=== PATIENT | female | born 1945 | race Caucasian/White ===

== ENCOUNTER 2016-11-11 11:04 | Inpatient (IN) | payer MEDICARE, MEDICAID ==
[~2016-11-11] VITALS: Ht 165.1 cm; Wt 50.3 kg
[2016-11-11] VITALS (13 sets, daily range): BP systolic 87–113; BP diastolic 36–58; PULSE 89–102; RESP 13–23; O2SAT 96–98
[~2016-11-11 11:04] MED LIST: ALBU2.5V4 INHALATION; ALBU8.5H2 INHALATION; ALPR0.5T8 PO; ERGO500050 PO; FLUO20TA28 PO; IMI100 PO; LEVO88TA4 PO; LIDO700A33 TOP; METO25TA99 PO; MIRT15TA6 PO; NEPHVIT PO; OMEP20CA11 PO; OXYC10TA8 PO; PRD5T PO; PROM25SU46 RC; PROM25TA14 PO; SEVE800T7 PO
[2016-11-11] MEDS ORDERED: Piperacillin-Tazo 3.375 Gm Inj 3.375 GM in Dextrose 5% Minibag Plus 50 ML IV ONE (11:45)
[2016-11-11] MEDS ORDERED: levoFLOXacin Inj 750 MG in IV Premix 1 EACH IV ONE (11:45)
[2016-11-11] MEDS ORDERED: Vancomycin Dose per Pharmacist XX ONE (11:45)
--- NOTE | 2016-11-11 12:04 | ED.REPORT ---
HPI-General Illness Date of Service Nov 11, 2016 ED Provider: Glenda Loza MD Pt is a 71 y/o female w/ a hx of ESRD on dialysis, CHF, chronic respiratory failure on home O2, prior PE and DVT, hyperlipidemia, presenting to the ED c/o generalized weakness onset yesterday. The pt had a transvalvular aortic valve repair attempted in [place] recently that failed with some intraoperative codes. She has an ejection fraction of 15%. She is currently living at [facility] and the goal is continued aggressive treatment with full code status. She went to dialysis today and was deemed to look ill enough to not be dialyzed. At that time she had a palliative care consult and she is full code/aggressive treatment. She had been rehabilitating relatively well until yesterday when she developed subjective fever, chills, cough, and generalized weakness. She denies N/V/D, CP, abdominal pain, SOB. Palliative care physician Dr. Ruelas was consulted prior to interview and recommends workup for influenza vs hospital acquired pneumonia vs sepsis. Nursing Notes Stated Complaint: PAIN THROUGHOUT BODY Chief Complaint: General Complaint Nursing Notes Reviewed: Yes Allergies: Coded Allergies: morphine (Verified Allergy, Severe, depressed loc, TOLERATES HYDROCODONE, 07/06/16) hydromorphone (Unverified Allergy, Mild, 07/06/16) metoclopramide HCl (Verified Adverse Reaction, Severe, Nausea,Vomiting, ) Scheduled Ergocalciferol (Vitamin D2) (Drisdol) 50,000 Unit Capsule 50,000 UNIT PO Q7D tuesday only Fluoxetine (Fluoxetine) 20 Mg Tablet 20 MG PO evening Levothyroxine (Levothyroxine) 88 Mcg Tablet 88 MCG PO DAILY Lidocaine (Lidocaine) 700 Mg Adh..patch 1 PATCH TOP daily on hs, off AM Metoprolol Succinate ER (Metoprolol Succinate ER) 25 Mg Tab.er.24h 12.5 MG PO DAILY Mirtazapine (Mirtazapine) 15 Mg Tablet 7.5 MG PO HS Omeprazole (Omeprazole) 20 Mg Capsule.dr 20 MG PO BIDAC Prednisone (PredniSONE) 5 Mg Tab 5 MG PO DAILY Sevelamer Carbonate (Renvela) 800 Mg Tablet 800 MG PO TIDWM Vitamin B Complex/Vit C (Shakira-Murray Tablet) 1 Tab Tab 1 TAB PO DAILY Scheduled PRN Albuterol HFA (Proair HFA) 8.5 Gm Hfa.aer.ad 2 PUFFS INHALATION Q4H PRN PRN For Shortness of Breath Albuterol Neb Soln (Albuterol Neb Soln) 2.5 Mg/3 Ml Vial.neb 2.5 MG INHALATION TID PRN PRN For Shortness of Breath Alprazolam (Alprazolam) 0.5 Mg Tablet 0.5 MG PO BID PRN PRN For Anxiety Promethazine (Promethazine) 25 Mg Tablet 25 MG PO DAILY PRN PRN For Nausea Sumatriptan (Imitrex) 100 Mg Tablet 100 MG PO DAILY PRN PRN FOR MIGRAINE HEADACHE may repeat in 2 hours, max dose 200 mg in 24 hrs oxyCODONE (oxyCODONE) 10 Mg Tablet 10 MG PO TID PRN PRN For Pain Miscellaneous Medications Promethazine HCl (Phenergan) 25 Mg Supp.rect 25 MG RC General Time Seen by MD: 11:42 Chief Complaint Multip medical complaints Hx Obtained From: Patient Arrived By: Walk-in Sudden in Onset?: No Onset Occurred: Yesterday Symptom Duration: Since onset Quality: Aching (diffuse) Severity: Current: Mild Severity: Maximum: Mild Past Medical History Past Medical History Notes: On prednisone 5 mg qd Past Medical History Hx STEMI ESRD on dialysis, prolonged QT Chronic hypoxemic respiratory failure on home oxygen Congestive heart failure Prolonged QT syndrome status post AICD Anemia due to renal failure History of pneumonia History of orthostatic hypotension History of pulmonary embolism and DVT diagnosed in 12/01/2012 no longer taking anticoagulation for unknown reasons. Chronic steroid dependency History of hepatitis B Hypothyroidism Depression Hyperlipidemia Hypertension History of miliary tuberculosis in 2010 treated Past Surgical History Pacemaker, Kidney transplant 1999 Cholecystectomy Appendectomy Family History Noncontributory Smoking History Never Smoker Social History Alcohol Use: Denies alcohol use Drug Use: Denies drug use Other Social History: Good social support, , Local resident Ambulatory Status Independent Review of Systems Full Review of Systems Constitutional: Reports: Chills, Fever, Weakness - generalized Respiratory: Reports: Non-productive cough, Denies: Shortness of breath Cardiovascular: Denies: Chest pain GI: Denies: Abdominal pain, Diarrhea, Nausea, Vomiting Complete sys rev & neg: except as marked. Physical Exam Vital Signs Vital Signs Date Time Temp Pulse Resp B/P Pulse Ox O2 Delivery O2 Flow Rate FiO2 11/11/16 15:19 92/38 11/11/16 14:43 36.9 90 13 91/43 96 Nasal Cannula 2 11/11/16 13:14 90 18 103/43 96 Nasal Cannula 2 11/11/16 12:21 98 17 104/52 96 Room Air 11/11/16 11:28 38.4 102 23 106/47 98 Nasal Cannula 2 Initial VS: Reviewed, Vital signs abnormal Head / Eyes: Atraumatic, Normocephalic, PERRL ENT: Mucous membranes moist, Conjunctiva normal, No scleral icterus Neck: Supple, Full range of motion Abdomen / GI: Soft, Non-tender Skin: Warm, Dry, No cyanosis Psychiatric: Mood/affect normal, Behavior normal, Normal thought content General/Constitutional: Awake, Alert, No acute distress, Cooperative Distress / Hydration: Positive: Dehydration mild Respiratory / Chest: Atraumatic, No respiratory distress, No retractions Crackles and inspiratory squeaking on the right side. Cardiovascular: Heart rate NL, Regular rhythm, Cap refill not delayed, Peripheral circulation NL Heart Sounds / Murmur: Positive: Systolic murmur present.. (II/) Lower Ext Edema: Positive: Bilateral 2+ (chronic) Neurologic: Oriented X3, Speech NL, No motor deficits, No sensory deficits Appears generally contracted Interpretation & Diagnostics Lab Results Interpretation Result Diagram: 11/11/16 1208 11/11/16 1208 Test 11/11/16 12:08 White Blood Count 13.3th/mm3 (3.8-10.1) Red Blood Count 2.94mil/mm3 (3.90-5.20) Hemoglobin 9.6g/dL (12.0-15.6) Hematocrit 31.3% (35.0-46.0) Mean Corpuscular Volume 106.5fL (81-100) Mean Corpuscular Hemoglobin 32.7pg (27.0-35.0) Mean Corpuscular Hemoglobin Concent 30.7% (32.0-37.0) Red Cell Distribution Width 17.9% (12.3-15.4) Platelet Count 386bil/L (150-400) Neutrophils (%) (Auto) 93.0% (40-74) Lymphocytes (%) (Auto) 2.4% (14-46) Monocytes (%) (Auto) 4.0% (4-12) Eosinophils (%) (Auto) 0.2% (0-5) Basophils (%) (Auto) 0.2% (0-3) Sodium Level 136mEq/L (134-144) Potassium Level 4.0mEq/L (3.5-5.2) Chloride Level 91mEq/L (97-108) Carbon Dioxide Level 29mmol/L (18-29) Blood Urea Nitrogen 40mg/dL (8-27) Creatinine 5.66mg/dL (0.57-1.00) Estimat Glomerular Filtration Rate 11mL/min (>59) Glucose Level 106mg/dL (60-99) Calcium Level 9.1mg/dL (8.5-10.1) Total Bilirubin 0.9mg/dL (0.0-1.2) Aspartate Amino Transf (AST/SGOT) 30U/L (0-50) Alanine Aminotransferase (ALT/SGPT) 15U/L (0-32) Alkaline Phosphatase 258U/L (25-165) Troponin T 0.393ug/L (0.0-0.011) Total Protein 6.3g/dL (6.4-8.4) Albumin 3.5g/dL (3.4-5.0) ECG Interpretation ECG Interpretation: Sinus tachycardia rate 100 LVH with secondary repol pattern Time: 12:10 Interpreted by: ED physician Normal ECG Interpretation: No acute ischemic changes X-Ray Chest Interpretation Chest Xray Interpretation: IMPRESSION: 1. Mild pulmonary edema decreased from prior examination. 2. Small pleural effusions persist and there is airspace opacity involving the lung bases consistent with compressive atelectasis, patchy edema or pneumonia. Correlate clinically. Dictated by: Fabrizio Maki RRA Interpreted: Yvonne Adam MD on 11/11/2016 at 12:50 Transcribed by: MILKA on 11/11/2016 at 12:51 View: Portable, 1 view Interpretation / Wet Read by: Interpret - Radiologist Re-Eval/Medical Decision Med Decision/Clinical Course 71-year-old female with renal failure, and a prodrome of cold and chills suggesting bacterial infection. She has had about a one-week history of cough as well, though nonproductive. Her x-ray has an atelectatic area versus infiltrate in the right base, and findings on chest exam in that area, all suggesting pneumonia. She has received antibiotics for healthcare associated pneumonia, which should cover any likely pathogens. She has received a small bolus of fluid given her tachycardia and mild hypotension. She did not receive her dialysis today as planned, but has no indication for stat dialysis by pH or by potassium. She is admitted to the medicine service. Discussed with nephrology. Source of Hx: Old records Time of Eval: 14:17 Re-Evaluation/Progress Note: Pt rechecked. Pt informed of need for admission due to likely pneumonia and risk for adverse events if discharged. Pt understands and agrees with plan for admission. All questions addressed. Consultation #1: Referral / Consult Name: Daphne Ruelas MD Call Returned at: 11:50 Nitroglycerin Neutralizer: Will see patient, Agrees with eval, Agrees with plan Note: Discussed case with palliative care prior to interview. Informs that patient is aggressive treatment/full code. Consultation #2: Referral / Consult Name: Ryan Martinez MD Consulted With: Hospitalist Call Returned at: 15:30 Nitroglycerin Neutralizer: Will see patient, Agrees with eval, Agrees with plan, Accepts admit Note: Case discussed. Counseled Regarding: Diagnosis, Lab results, Need for admission Discharge & Departure Primary Impression: Pneumonia Pneumonia type: due to unspecified organism Laterality: right Lung location : lower lobe of lung Qualified Code: J18.9 - Pneumonia, unspecified organism Additional Impression: Renal failure, chronic Chronic kidney disease stage: stage 5 Qualified Code: N18.5 - Chronic kidney disease, stage 5 Disposition: ADMITTED TO HOSPITAL Discharge Condition All VS Reviewed: Yes Condition: Stable Referrals: Santino Pratt MD (PCP) Jannie Attestation Portions of this note were transcribed by Carson Keane. I, Dr. Loza personally performed the history, physical exam and medical decision-making; I reviewed and confirmed the accuracy of the information in the transcribed note. Signed by Jannie Roberto, 11/11/16 - 1300 copies to: Santino Pratt MD, Shawna L MD Nov 11, 2016 12:04 CARSON KEANE Nov 11, 2016 12:09 Moises Hayes MD Nov 11, 2016 19:25
[2016-11-11] MEDS ORDERED: Vancomycin 1 Gm/200 mL D5W Premix IV ONE (12:05)
[2016-11-11 12:22] LABS: BASOPHILS % (AUTO) 0.2 % (0-3); EOSINOPHILS % (AUTO) 0.2 % (0-5); Mean Corpuscular Hemoglobin 32.7 pg (27.0-35.0); Mean Corpuscular Volume 106.5 fL (81-100); Platelet Count 386 bil/L (150-400)
--- NOTE | 2016-11-11 12:52 | DRSVH ---
PROCEDURE: X-RAY CHEST ONE VIEW, PORTABLE ([id number]) INDICATIONS: cough TECHNIQUE: One view of the chest was acquired. COMPARISON: Outside Film, CR, XR CHEST 1VW, 10/27/2016, 0:08. [facility], CR, XR CHEST 1 VW (PORTABLE), 06/10/2016, 8:58. FINDINGS: Surgical changes and devices: Stable position of left chest AICD. Lungs and pleura: Interstitium is prominent and small basilar pleural effusions redemonstrated. Airs pace opacity involves the lung bases No pneumothorax. Mediastinum: Mediastinal contours appear normal. Heart size is enlarged. Bones and chest wall: No suspicious bony lesions. Overlying soft tissues appear unremarkable. IMPRESSION: 1. Mild pulmonary edema decreased from prior examination. 2. Small pleural effusions persist and there is airspace opacity involving the lung bases consistent with compressive atelectasis, patchy edema or pneumonia. Correlate clinically. Dictated by: Fabrizio Maki [facility] Interpreted: Yvonne Adam MD on 11/11/2016 at 12:50 Transcribed by: MILKA on 11/11/2016 at 12:51 Approved by: Yvonne Adam MD, PhD on 11/11/2016 at 17:25
[2016-11-11 13:01] LABS: TROPONIN T 0.393 ug/L (0.0-0.011)
[2016-11-11] MEDS ORDERED: 0.9% Sodium Chloride 250 ML ONE (13:14)
[2016-11-11] MEDS ORDERED: 0.9% Sodium Chloride 500 ML IV ONE (15:35)
[2016-11-11] MEDS ORDERED: 0.9% Sodium Chloride 1,000 ML IV SCH (15:43)
[2016-11-11] MEDS ORDERED: Ondansetron 2 mg/mL 2 mL Inj IVPUSH PRN ×2 (15:45→16:05)
[2016-11-11] MEDS ORDERED: Acetaminophen IV 1,000 MG in IV Premix 1 EACH IV PRN (16:05)
[2016-11-11] MEDS: Vancomycin Dose per Pharmacist XX SCH (16:27)
--- NOTE | 2016-11-11 16:50 | PCM.CONPHA ---
Subjective Date of Service: Nov 11, 2016 Sepsis Reason for Pharmacy Consult: Vancomycin Dosing Assessment/Plan Assessment/Plan Patient is a 71 y.o. female receiving vancomycin for sepsis. Concurrent abx include: zosyn and levofloxacin. WBC count is 13.3 and the patient is febrile. Patient is 50 kg, 66 inches tall on HD Based on patient parameters vancomycin will be loaded with 1000mg once, then redosed based on random levels <20 drawn each morning @0500. Pharmacy will follow daily and adjust as appropriate. Thank you for the consult in the care of this patient. RWP Emanuel Aguilar Nov 11, 2016 16:49
[2016-11-11] MEDS ORDERED: 0.9% Sodium Chloride 250 ML IV PRN (17:10)
[2016-11-11 17:51] LABS: Phosphorus 2.5 mg/dL (2.5-4.9)
--- NOTE | 2016-11-11 18:22 | NUR ---
Admit [facility] Pt arrived at approx 1630 with all belongings intact, VS stable except low BP of which MD is aware and orders are in place. in room to assist with admit. Pt A&O, NS @ TKO, on 2L O2. Med rec pending. Care continues.
--- NOTE | 2016-11-11 18:24 | NUR ---
Skin Pt has possible pressure ulcer or serious skin concern on her medial coccyx area, mepilex removed and area examined, new mepilex applied. Area was oozing pus and non blanchable. ordered WC consult for tomorrow. Continuing to monitor.
--- NOTE | 2016-11-11 19:19 | CONS ---
[address] [address] CONSULTATION REPORT PATIENT: SALLIE ANSARI : 1945 MR#: [id number] ADMIT: 11/11/2016 JOB ID: [id number] DATE OF SERVICE: 11/11/2016 REASON FOR CONSULTATION: Management of end-stage renal disease. REQUESTING PHYSICIAN: Dr. Loza. REASON FOR CONSULTATION: Management of end-stage renal disease. CHIEF COMPLAINT: Weakness. PRESENT ILLNESS: This is a 71-year-old lady with significant past medical history of end-stage renal disease on hemodialysis every Tuesday, , Tuesday, CHF, severe deconditioning, chronic respiratory failure requiring home oxygen, pulmonary embolism, hypertension with hypertensive nephrosclerosis, prolonged QT syndrome, status post kidney transplant in 1999 who was brought to the emergency department given history of feeling sick. The patient recently underwent transvalvular aortic valve repair in one of the hospitals in [place]. Unfortunately, the procedure did not go well. The patient coded during the procedure. Her mentioned that they basically could not fix the valvular problem. The patient then sent to [facility]. The patient has been at [facility] for at least two weeks. According to her , she started having productive cough for about one week also. She has no fever, no chills, no nausea, vomiting, no diarrhea. Apparently at dialysis center today, she became malaise and looked very ill. She was then brought to the emergency room for further investigations. Her initial blood pressure was 106/47 with a temperature of 38.4. Blood pressure then dropped to 87/36. She received IV fluid bolus and a septic workup was done including the blood culture, influenza screening so far negative, chest x-ray showed airspace opacity on the lung bases consistent with atelectasis, edema or pneumonia. The patient was started on IV broad-spectrum antibiotics. Her initial white blood cell count was 13.3. During my visit at the moment, she stated that she had felt a little bit better after she received IV fluids and antibiotics. Her also agreed to that. Her last dialysis was two days ago. Her current potassium level is 4.0. PAST MEDICAL HISTORY: 1. End-stage renal disease on hemodialysis every Tuesday, , Tuesday. 2. Status post kidney transplant in 1999 with graft failure. 3. COPD requiring home oxygen. 4. Prolonged QT status post AICD. 5. History of PE and DVT. 6. History of hepatitis B infection. 7. Hypothyroid. 8. Dyslipidemia. 9. Hypertension with hypertensive nephrosclerosis. 10. History of tuberculosis in 2010. 11. Anemia of chronic disease. 12. Renal osteodystrophy. PAST SURGICAL HISTORY: 1. Status post kidney transplant in 1999. 2. Status post AV fistula creation. 3. Status post AICD placement. 4. Status post cholecystectomy. 5. Status post appendectomy. 6. Status post attempted transvalvular aortic valve repair. FAMILY HISTORY: No kidney disease in the family. SOCIAL HISTORY: Patient is a [place]. She denies current use of alcohol, tobacco, or illicit drugs. REVIEW OF SYSTEMS: Fourteen point review of system was performed. MEDICATIONS: Reviewed. ALLERGIES: 1. HYDROMORPHONE. 2. METOCLOPRAMIDE. 3. MORPHINE. PHYSICAL EXAMINATION: Vitals: Temperature 36.8, pulse 90, respiratory 14, blood pressure 105/44, O2 sat 97% on 2 L nasal cannula. General appearance: Chronically ill-looking, in no acute distress. HEENT: Atraumatic. Mild pallor. No jaundice. No JVD. Dry mucous membranes. Heart: Regular rhythm. Normal S1, S2. Soft systolic murmur noted. Lungs: Poor air entry bilaterally. Scattered rhonchi. No wheezing at the moment. Abdomen: Soft. Active bowel sounds. Extremities: No edema, cyanosis. LABORATORY: Sodium 136, potassium 4.0, chloride 91, bicarb 29, BUN 40, creatinine 5.66, hemoglobin 9.6. WBC 13.3. ASSESSMENT: 1. End-stage renal disease on hemodialysis every Tuesday, , Tuesday. 2. Currently, the patient is unstable. She has been hypotensive. Her current potassium level is within normal limits. We will hold dialysis today and likely she will receive her treatment tomorrow for 3 hours. 3. Recent history of productive cough and malaise suspected healthcare-associated pneumonia. 4. Severe aortic stenosis status post attempted transvalvular aortic valve repair. 5. Chronic systolic heart failure with ejection fraction 15%. 6. Prolonged QT syndrome status post automatic implantable cardioverter-defibrillator. 7. Chronic obstructive pulmonary disease requiring home oxygen. PLAN: We will hold dialysis today and we will arrange for dialysis tomorrow. The requests for her to have regular diet. I have agreed for that since this patient is very malnourished and she cannot eat very much. Nonetheless, we will monitor her volume status and potassium level. Continue current IV broad-spectrum antibiotics. We will discontinue current IV fluids. We will monitor her blood pressure and will give normal saline bolus as needed if she becomes hypotensive. Thank you for the consultation. We will monitor along with you.
--- NOTE | 2016-11-11 19:52 | PCM.HPMED ---
Subjective Date of Service Nov 11, 2016 Primary Provider: Admitting Physician: Ryan Martinez MD Primary Care Physician: Santino Pratt MD Attending Physician: Ryan Martinez MD Chief Complaint: Sepsis History of Present Illness: Patient is 71yof from [facility] with HMx significant for CHF EF 15-20%, severe aortic stenosis, ESRD on HD, chronic respiratory failure on 2L home O2, and chronic steroids dependent presents with 4 days of weakness and cough. Per patient, reports dry cough for several weeks now. She denies any fevers chills nausea vomiting or diarrhea. Today however, patient woke up with generalize weakness and body aches. Nevertheless, patient went to dialysis. At dialysis, it was reported that she had a temperature of 38.4C and blood pressure dropped of 87/36. Patient was admitted to the ED for further evaluation. Patient recently (09/2016) underwent TAPVR procedure at for her nonrheumatic critical aortic stenosis. This was unsuccessful however. She was sent to [facility] [place] for further rehabilitation status post surgery. Review of Systems: A comprehensive review of systems was conducted with the patient and found to be negative except as above in the History of Present Illness. Allergies Coded Allergies: morphine (Verified Allergy, Severe, depressed loc, TOLERATES HYDROCODONE, 07/06/16) hydromorphone (Unverified Allergy, Mild, 07/06/16) metoclopramide HCl (Verified Adverse Reaction, Severe, Nausea,Vomiting, ) Home Medications Active home medication NexGen We will need med rec nurse Lisinopril 5 mg daily Oxycodone 10 mg every 4-6 hours as needed Similar manner carbonate 800 mg daily Warfarin 2 mg daily Prednisone 5 mg daily Omeprazole delayed release least twice a day Fluoxetine 20 mg in the a.m. Albuterol sulfate 2.5/3 mL nebulizer 3 times a day Levothyroxine 88 MCG qd Lidocaine patch 5% qd Alprazolam 0.5 mg twice a day Albuterol sulfate HFA 2 puffs every 4-6 hours as needed Phenergan 25 mg suppository as needed Promethazine 25 mg every 6 hours Landers Mirtazapine 15 mg half tablet nightly as needed Sumatriptan 100 mg orally after onset PMH Hypothyroidism Hypertension Hyperlipidemia History of long QT and chest syndrome status post AICD History of diverticulosis History of depression End-stage renal disease on HD, Tuesday and Tuesday Migraine headaches History of bleeding gastric ulcer Hyperparathyroidism Aortic stenosis with valvular area 0.8 cm status post failed TARV Hx Pulmonary embolism and DVT 12/01/2012 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 Hx of hepatitis B Surgical History Kidney transplant 1999 and Tonsillectomy Cardiac pacemaker Cholecystectomy Appendectomy Family History Mother with diabetes old age Father with congestive heart disease of old age Social History Hx Alcohol Use: No Hx Substance Use: No Hx Tobacco Use: No Smoking Status: Never Smoker Exam Vital Signs Vital Sign - Last Date Time Temp Pulse Resp B/P Pulse Ox O2 Delivery O2 Flow Rate FiO2 11/11/16 18:07 101/58 11/11/16 16:56 36.8 90 14 97 Nasal Cannula 2.00 Exam Gen: No acute distress, finished plate dinner, ro faces , HEENT: Anicteric, PERRLA, mild mucosal membrane dryness. Neck: supple, no JVD Cardio: Regular rate and rhythm, holosystolic murmur, no rub or gallop. Pulm: b/l air sound, no crackles, wheezes, or rhonchi. Normal respiratory effort with no use of accessory muscles. Abd: positive bowel tone. Soft, nontender, nondistended. Extremities: No clubbing or cyanosis, bilateral lower leg pitting edema up to the knees. Skin: Normal temperature, turgor, and texture; no rash, ulcers, or subcutaneous nodules appreciated. Report of sacral ulcer Neuro: Cranial nerves grossly intact. Normal muscle strength, tone, and bulk. Reflexes, coordination, and sensory function within normal limits. No known gait impairment. Psyc: Normal mood and affect. Alert and oriented to person, place, and time. Lab and Diagnostics Result Diagram: 11/11/16 1208 11/11/16 1208 Assessment & Plan [facility] 71[facility]x significant for CHF EF 15-20%, severe aortic stenosis, ESRD on HD, chronic respiratory failure on 2L home O2, and chronic steroids dependent presents with weakness and cough, admitted with severe sepsis secondary to HCAP pneumonia. Severe sepsis, present on admission, resolved -- Patient with SIRS positive on admission with temperature 38.4, HR 12, RR 23. and WBC 13.3, left shift, hypotensive -- Chest x-ray showed bilateral pleural effusion possibly pneumonia. -- She receive a total of 1.5 L of fluid with good effect. Blood pressure stable, lactic acid within normal limits -- Patient also received Zosyn, levofloxacin, vancomycin within the three-hour sepsis bundle. Hospital-acquired pneumonia, present on admission, active -- Continue antibiotics as above, de-escalate abx use once MRSA screening and culture sensitivity returns. -- Blood, sputum, urine culture, MRSA screening, viral respiratory panel, and pro-calcitonin ordered -- Careful to interpret pro-calcitonin level as patient is immune suppressed. -- Consider infectious disease consultation should patient's symptoms unimproved in the morning Chronic steroid-dependent, present on admission, ongoing -- Patient reports taking prednisone 5 mg daily -- Unknown the reason to why she is on chronic prednisone. But obviously we cannot discontinue. -- resume prednisone 5 mg qd Chronic heart failure with reduced ejection fraction, present on admission, ongoing -- Estimated EF 15-20%. -- This is secondary to critical aortic stenosis. -- Conservative on fluids. Bolus if BP is less than 90/50. -- Early to start arterial line and pressor support should patient blood pressure decompensate Chronic kidney disease on HD, present admission, ongoing -- Has HD Tuesday and Tuesday -- Continue to evaluate electrolyte abnormality. -- Patient will be dialyzed per nephrology. Team appreciate input. Chronic respiratory failure, present on admission, ongoing -- Chronic, continue nasal cannula up to 6 L per day Chronic respiratory failure, present on admission, active -- Place on home O2 setting of 2 L/m -- DuoNeb and albuterol when necessary Troponin elevation with unknown significant, present on admission, active -- EKG looks benign -- Trending troponin -- This is likely false positive in the setting of end-stage renal disease History of pulmonary embolism with DVT, present on admission, stable -- Restarted warfarin dose per pharmacy Depression/anxiety -- Fluoxetine 20 mg by mouth evening, as well as alprazolam 0.5 mg every 6 hours , and mirtazapine 30 mg hs History of PE/DVT present admission, ongoing, ongoing -- Warfarin dosing per pharmacy Essential hypertension, present admission, stable -- Holding all antihypertensive medication in the setting of severe sepsis DVT prophylaxis: warfarin Antipyretic: Acetaminophen PRN Antinausea: Ondansetron PRN Bowel regiment PRN Patient is admitted under inpatient status with expected length of stay GREATER than 2 midnights due to severity of presenting symptoms, risk of adverse event, and complexity of treatment plan. Pain Evaluation: Adequate Pain Control Resuscitation Status: CPR: Attempt Resuscitation Time spent 40 minutes critical care time spent managing pts severe sepsis. Attending Statement The patient was seen and examined together with Dr. García Nunez on 11/11/2016 and I have added additional information to the note above. García Nunez DO Nov 11, 2016 18:53 Ryan Martinez MD Nov 12, 2016 09:08
[2016-11-11] MEDS ORDERED: 0.9% Sodium Chloride 250 ML IV ONE (20:30)
[2016-11-11] MEDS ORDERED: METO25TA99 PO (20:46)
[2016-11-11] MEDS ORDERED: FLUO20CA25 PO (21:03)
[2016-11-11] MEDS ORDERED: IPRA3AMP IH (21:03)
[2016-11-11] MEDS ORDERED: WARF1TAB6 PO (21:03)
[2016-11-11] MEDS ORDERED: ONDA-53 PO (21:03)
[2016-11-11] MEDS ORDERED: MULT-1018 PO (21:03)
[2016-11-11] MEDS ORDERED: WARF3TAB7 PO (21:03)
[2016-11-11] MEDS ORDERED: TRAZ-115 PO (21:03)
[2016-11-11] MEDS ORDERED: ACET325C PO (21:03)
[2016-11-11] MEDS ORDERED: LISI-571 PO (21:03)
[2016-11-11] MEDS ORDERED: FOLI1CAP8 PO (21:03)
--- NOTE | 2016-11-11 21:04 | NUR ---
med rec med rec completed. list from [facility] "rx resident profile." faxed request for medication transferr list. (called [facility] and requested) unable to date when the medications were administered from the profile list.
[2016-11-11] MEDS ORDERED: Albuterol-Ipratropium 3 mL Inhalation Solution NEB PRN (21:20)
[2016-11-11 22:47] LABS: INR 1.24 ratio
[2016-11-11] MEDS: Lidocaine Topical 5% Patch TOPICAL SCH (23:34)
[2016-11-11] MEDS: Heparin 5,000 Unit/mL Inj SUBQ SCH (23:34)
[2016-11-12] VITALS (13 sets, daily range): BP systolic 94–119; BP diastolic 53–72; PULSE 87–94; RESP 18–20; O2SAT 93–100
[2016-11-12] MEDS: Piperacillin-Tazo 3.375 Gm Inj 3.375 GM in Dextrose 5% Minibag Plus 50 ML IV SCH ×3 (00:46→12:30)
[2016-11-12] MEDS ORDERED: Vancomycin Serum Trough XX ONE (05:00)
--- NOTE | 2016-11-12 05:19 | NUR ---
BP BP at midnight was 98/51 (MAP67). 250mL NS bolus given x1; pt's BP sustaining in 100s/60s (MAP>70). Rest of VSS, afebrile.
[2016-11-12 07:07] LABS: INR 1.35 ratio
[2016-11-12] MEDS: predniSONE 5 mg Tablet PO SCH (08:03)
[2016-11-12] MEDS: Heparin 5,000 Unit/mL Inj SUBQ SCH ×2 (08:03→19:51)
[2016-11-12] MEDS: Vancomycin Dose per Pharmacist XX SCH (08:04)
[2016-11-12 08:46] LABS: BASOPHILS % (AUTO) 0.3 % (0-3); EOSINOPHILS % (AUTO) 0.9 % (0-5); MONOCYTES % (AUTO) 7.5 % (4-12); Mean Corpuscular Hemoglobin 33.8 pg (27.0-35.0); NEUTROPHILS % (AUTO) 84.6 % (40-74); Platelet Count 393 bil/L (150-400)
[2016-11-12] MEDS ORDERED: Vancomycin Inj 500 MG in Dextrose 5% 100 ML IV ONE (10:00)
[2016-11-12] MEDS: Senna-Docusate 8.6-50 mg Tablet PO SCH (10:22)
[2016-11-12] MEDS: Albuterol-Ipratropium 3 mL Inhalation Solution NEB SCH ×2 (10:53→20:43)
--- NOTE | 2016-11-12 11:42 | PCM.PNMED ---
Subjective Date of Service Nov 12, 2016 Subjective Res viral panel is positive for influenza A H3, Coronovirus. (+) productive cough and wheezes. pending HD today. Exam Vital Signs Vital Sign - Last Date Time Temp Pulse Resp B/P Pulse Ox O2 Delivery O2 Flow Rate FiO2 11/12/16 10:57 89 20 98 Nasal Cannula 2.00 11/12/16 08:51 36.6 111/65 Intake and Output 11/11/16 11/11/16 11/12/16 Cumulative From/Thru 15:00 23:00 07:00 11/11/16 11:28 - 11/12/16 06:52 Intake Total 100 ml 737 ml 405 ml 1242 ml Output Total 0 ml 0 ml Balance 100 ml 737 ml 405 ml 1242 ml Intake Oral 237 ml 100 ml 337 ml IV Total 100 ml 500 ml 305 ml 905 ml Output Urine Total 0 ml 0 ml Exam PHYSICAL EXAMINATION: General appearance: Chronically ill-looking, in no acute distress. HEENT: Atraumatic. Mild pallor. No jaundice. No JVD. Dry mucous membranes. Heart: Regular rhythm. Normal S1, S2. Soft systolic murmur noted. Lungs: Poor air entry bilaterally. Scattered rhonchi. (+) wheezes. Abdomen: Soft. Active bowel sounds. Extremities: right AVF with good thrill and bruits. No edema, cyanosis. Lab and Diagnostics Result Diagram: 11/12/1663411/12/1635 Assessment & Plan 1. End-stage renal disease on hemodialysis every Tuesday, , Tuesday. 2. Suspected hospital-associated pneumonia. 3. Influenza A/Coronovirus infection. 4. Severe aortic stenosis status post attempted transvalvular aortic valve repair. 5. Chronic systolic heart failure with ejection fraction 15%. 6. Prolonged QT syndrome status post automatic implantable cardioverter- defibrillator. 7. Chronic obstructive pulmonary disease requiring home oxygen. 8. HTN with hypertensive nephrosclerosis. PLAN: Pt missed HD yesterday, will resume dialysis today. We will continue her routine HD schedule starting tomorrow. Resuscitation Status: CPR: Attempt Resuscitation Juan Rodriguez MD Nov 12, 2016 11:42
--- NOTE | 2016-11-12 11:45 | NUR ---
Evaluation completed. Please go to "Notes" then click on "Assessments and Notes" (bottom left corner of screen). Then select appropriate discipline tab on top of screen.
[2016-11-12] MEDS ORDERED: 0.9% Sodium Chloride 250 ML ONE (12:18)
--- NOTE | 2016-11-12 13:11 | NUR ---
pt arrived to [facility] [place] at 1305 via bed on 2L NC; denies sob alert/oriented and cooperative; denies complaints or concerns tele master automotive technician informed of temp room location report received from primary nurse TB RN ([facility]) nurse practitioner physicians assistant at bedside; will cont to monitor
--- NOTE | 2016-11-12 14:30 | PCM.PNMED ---
Subjective Date of Service Nov 12, 2016 Subjective Patti is doing much better this morning. Her breathing is back to baseline 2L of oxygen and she feels improved. She is still having a productive cough that bothers her occasionally. Has not had any fevers or n/v. Exam Vital Signs Vital Sign - Last Date Time Temp Pulse Resp B/P Pulse Ox O2 Delivery O2 Flow Rate FiO2 11/12/16 06:28 36.7 89 20 118/65 98 Nasal Cannula 2.00 Intake and Output 11/11/16 11/11/16 11/12/16 Cumulative From/Thru 15:00 23:00 07:00 11/11/16 11:28 - 11/12/16 06:52 Intake Total 100 ml 737 ml 405 ml 1242 ml Output Total 0 ml 0 ml Balance 100 ml 737 ml 405 ml 1242 ml Intake Oral 237 ml 100 ml 337 ml IV Total 100 ml 500 ml 305 ml 905 ml Output Urine Total 0 ml 0 ml Exam Gen: Alert and oriented, in NAD HEENT: Anicteric, PERRLA, mucous membranes moist and pink Neck: supple, no JVD noted Cardio: Regular rate and rhythm, holosystolic murmur noted, no rub or gallop. Pulm: Mild bibasilar rales noted. No wheezing or rhonchi noted. Normal resp effort. Abd: Soft, nontender, nondistended. Normoactive BS+ Extremities: No clubbing or cyanosis,. 2+ b/l pedal pitting edema. Skin: Warm, dry, intact. Report of sacral ulcer Neuro: Grossly intact. No focal weakness or facial asymmetry. Psych: Normal mood and affect. IVs and Medications Medications Reviewed: Medications were reviewed in detail Lab and Diagnostics Result Diagram: 11/11/16 1208 11/11/16 1208 Assessment & Plan Patient is 71yof from [facility] with HMx significant for CHF EF 15-20%, severe aortic stenosis, ESRD on HD, chronic respiratory failure on 2L home O2, and chronic steroids dependent presents with weakness and cough, admitted with severe sepsis secondary to HCAP pneumonia. Severe sepsis, present on admission, resolved -- Patient with SIRS positive on admission with temperature 38.4, HR 12, RR 23. and WBC 13.3, left shift, hypotensive -- Chest x-ray showed bilateral pleural effusion possibly pneumonia. -- She receive a total of 1.5 L of fluid with good effect. Blood pressure stable, lactic acid within normal limits -- Patient also received Zosyn, levofloxacin, vancomycin within the three-hour sepsis bundle. - Will continue IV antibiotics today. D/C vancomycin if MRSA screen negative. Convert to PO antibiotics tomorrow. Hospital-acquired pneumonia, present on admission, active, improving. -- Continue antibiotics as above, de-escalate abx use once MRSA screening and culture sensitivity returns. -- Blood, sputum, urine culture, MRSA screening, viral respiratory panel, and pro-calcitonin ordered on mavis -- Careful to interpret pro-calcitonin level as patient is immune suppressed. -- Viral PCR positive for Influenza A and Adenovirus. Will start Tamiflu 30mg PO after Hemodialysis for 5 days. Chronic steroid-dependent, present on admission, ongoing -- Patient reports taking prednisone 5 mg daily -- Unknown the reason to why she is on chronic prednisone. But obviously we cannot discontinue. -- Resume prednisone 5 mg qd Chronic heart failure with reduced ejection fraction, present on admission, ongoing -- Estimated EF 15-20%. -- This is secondary to critical aortic stenosis. -- Conservative on fluids. Bolus if BP is less than 90/50. -- Early to start arterial line and pressor support should patient blood pressure decompensate Chronic kidney disease on HD, present admission, ongoing -- Has HD Tuesday and Tuesday -- Continue to evaluate electrolyte abnormality. -- Patient will be dialyzed per nephrology. Team appreciate input. -- She did miss her dialysis and will be dialyzed today. Chronic respiratory failure, present on admission, ongoing -- Chronic, currently back down to 2L NC -- Duonebs Q6h and also prn for SOB Troponin elevation with unknown significant, present on admission, active -- EKG looks benign -- Troponins have been stable, likely due to CKD History of pulmonary embolism with DVT, present on admission, stable -- Restarted warfarin dose per pharmacy Depression/anxiety -- Fluoxetine 20 mg by mouth evening, as well as alprazolam 0.5 mg every 6 hours , and mirtazapine 30 mg hs History of PE/DVT present admission, ongoing, ongoing -- Warfarin dosing per pharmacy Essential hypertension, present admission, stable -- Holding all antihypertensive medication in the setting of severe sepsis -- Resume home medications tomorrow. DVT prophylaxis: warfarin Antipyretic: Acetaminophen PRN Antinausea: Ondansetron PRN Bowel regiment PRN Patient is admitted under inpatient status with expected length of stay GREATER than 2 midnights due to severity of presenting symptoms, risk of adverse event, and complexity of treatment plan. Pain Evaluation: Adequate Pain Control VTE Prophylaxis: Other Resuscitation Status: CPR: Attempt Resuscitation Attending Statement The patient was seen and examined together with Dr. Grey on 11/12/2016 and I agree with the history, exam and plan as outlined in the note above. Christopher Grey DO Nov 12, 2016 08:21 Ryan Martinez MD Nov 13, 2016 13:11
--- NOTE | 2016-11-12 16:06 | NUR ---
Social Work: Attempted Initial Assessment Data: Pt is a 71 y/o female admitted for pneumonia, CRF. Pt's PCP is Dr Pratt, pt's insurance is Medicare with [facility] supp. PASSENGER ELEVATOR OPERATOR attempted initial assessment, pt out of the room. PASSENGER ELEVATOR OPERATOR will attempt at a later time. DANIKA De Leon
--- NOTE | 2016-11-12 17:09 | NUR ---
Dialysis note: 3 hrs tx. 1000 ml net UF. Right upper arm fistula. Pls see DTR for VS details. Qb 400. No heparin given. O2 @ 2 L via NC on. Tolerated tx. Fistula needle sites clotted w/in 10 min. Report given to Veronica Blanton RN. Stable at time of transfer.
--- NOTE | 2016-11-12 17:10 | NUR ---
pt returned to [facility] post DIALYSIS at 1711 via bed escorted by CNAs report returned to primary nurse TB RN ([facility]) tele electronic device monitor informed of return to unit see ticket maker note, intervention, and/or graphic flow chart for treatment details
[2016-11-12] MEDS: Lidocaine Topical 5% Patch TOPICAL SCH (19:51)
[2016-11-13] VITALS (10 sets, daily range): BP systolic 111–126; BP diastolic 60–65; PULSE 87–101; RESP 18–20; O2SAT 92–100
[2016-11-13] MEDS: Piperacillin-Tazo 3.375 Gm Inj 3.375 GM in Dextrose 5% Minibag Plus 50 ML IV SCH (00:41)
[2016-11-13] MEDS: Albuterol-Ipratropium 3 mL Inhalation Solution NEB SCH ×4 (02:23→20:21)
[2016-11-13 06:48] LABS: BASOPHILS % (AUTO) 0.4 % (0-3); EOSINOPHILS % (AUTO) 1.2 % (0-5); MONOCYTES % (AUTO) 10.2 % (4-12); Mean Corpuscular Volume 106.4 fL (81-100); NEUTROPHILS % (AUTO) 80.5 % (40-74); Platelet Count 351 bil/L (150-400)
[2016-11-13 07:02] LABS: INR 1.2 ratio
[2016-11-13 07:10] LABS: Phosphorus 2.4 mg/dL (2.5-4.9)
--- NOTE | 2016-11-13 08:05 | NUR ---
Patient off floor for dialysis. Tamiflu and Renvela given to automotive general manager to give to patient during treatment.
--- NOTE | 2016-11-13 08:15 | PCM.PHAPRO ---
Progress Sepsis Random vanc level = 15.6 (11/13) Vancomycin discontinued per provider. Eliud Mejias, PharmD Eliud Mejias Nov 13, 2016 08:15
--- NOTE | 2016-11-13 08:23 | PCM.PNMED ---
Subjective Date of Service Nov 13, 2016 Subjective Doing well this morning. Tolerated HD well yesterday. Still having an intermittent deep cough, but her breathing is much improved also. Slept well overnight, no new complaints. Exam Vital Signs Vital Sign - Last Date Time Temp Pulse Resp B/P Pulse Ox O2 Delivery O2 Flow Rate FiO2 11/13/16 05:23 36.8 95 18 121/60 95 Nasal Cannula 2.00 Intake and Output 11/12/16 11/12/16 11/13/16 Cumulative From/Thru 15:00 23:00 07:00 11/11/16 11:28 - 11/13/16 06:48 Intake Total 110 ml 100 ml 50 ml 1502 ml Output Total 1000 ml 0 ml 0 ml 1000 ml Balance -890 ml 100 ml 50 ml 502 ml Intake Oral 100 ml 50 ml 487 ml IV Total 110 ml 1015 ml Output Urine Total 0 ml 0 ml 0 ml Ultrafiltrate 1000 ml 1000 ml # Bowel Movements 1 1 Exam Gen: Sleeping, but easily arousable and conversational HEENT: PERRLA, mucous membranes moist and pink Cardio: Regular rate and rhythm, holosystolic murmur noted, no rub or gallop. Pulm: CTAB, No wheezing or rhonchi noted. Normal resp effort. Abd: Soft, nontender, nondistended. Normoactive BS+ Extremities: No clubbing or cyanosis,. B/L pitting edema improving. Skin: Warm, dry, intact. Neuro: Grossly intact. No focal weakness or facial asymmetry. Psych: Normal mood and affect. IVs and Medications Medications Reviewed: Medications were reviewed in detail Medications Vancomycin stopped after neg MRSA swab Lab and Diagnostics Result Diagram: 11/13/1661911/13/16 0620 Assessment & Plan Patient is 71yof from [facility] with HMx significant for CHF EF 15-20%, severe aortic stenosis, ESRD on HD, chronic respiratory failure on 2L home O2, and chronic steroids dependent presents with weakness and cough, admitted with severe sepsis secondary to HCAP pneumonia and Influenza A. Severe sepsis, present on admission, resolved -- Patient with SIRS positive on admission with temperature 38.4, HR 12, RR 23. and WBC 13.3, left shift, hypotensive -- Chest x-ray showed bilateral pleural effusion possibly pneumonia. -- She receive a total of 1.5 L of fluid with good effect. Blood pressure stable, lactic acid within normal limits -- Patient also received Zosyn, levofloxacin, vancomycin within the three-hour sepsis bundle. - Will continue IV antibiotics today. D/C vancomycin if MRSA screen negative. Convert to PO antibiotics when appropriate. -- Will transition to Augmentin PO, renally dosed per pharmacy, 11/13. To complete a 7 day total regimen. Discontinued IV abx. Hospital-acquired pneumonia, present on admission, active, improving. -- Continue antibiotics as above, de-escalate abx use once MRSA screening and culture sensitivity returns. -- Blood, sputum, urine culture, MRSA screening, viral respiratory panel, and pro-calcitonin ordered on mavis -- Careful to interpret pro-calcitonin level as patient is immune suppressed. -- Viral PCR positive for Influenza A and Adenovirus. Will start Tamiflu 30mg PO after Hemodialysis for total of 5 days in her system. -- First dose Tamiflu given 11/13, renally dosed for after Hemodialysis Chronic steroid-dependent, present on admission, ongoing -- Patient reports taking prednisone 5 mg daily -- Unknown the reason to why she is on chronic prednisone. But obviously we cannot discontinue. -- Resume prednisone 5 mg qd Chronic heart failure with reduced ejection fraction, present on admission, ongoing -- Estimated EF 15-20%. -- This is secondary to critical aortic stenosis. -- Conservative on fluids. Bolus if BP is less than 90/50. -- Stable Chronic kidney disease on HD, present admission, ongoing -- Has HD Tuesday and Tuesday -- Continue to evaluate electrolyte abnormality. -- Patient will be dialyzed per nephrology. Team appreciate input. -- Tolerating HD well. Had 1 HD on 11/12, will resume normal scheduled programming 11/13 Chronic respiratory failure, present on admission, ongoing -- Chronic, currently back down to 2L NC -- Duonebs Q6h and also prn for SOB -- Improving SOB, will change to duonebs prn. Encourage Acapella. Guaifenesin 600mg bid prn cough Troponin elevation with unknown significant, present on admission, active -- EKG looks benign -- Troponins have been stable, likely due to CKD History of pulmonary embolism with DVT, present on admission, stable -- Restarted warfarin dose per pharmacy Depression/anxiety -- Fluoxetine 20 mg by mouth evening, as well as alprazolam 0.5 mg every 6 hours , and mirtazapine 30 mg hs History of PE/DVT present admission, ongoing, ongoing -- Warfarin dosing per pharmacy -- Not therapeutic yet. Essential hypertension, present admission, stable -- Holding all antihypertensive medication in the setting of severe sepsis -- Resume home medications tomorrow. DVT prophylaxis: warfarin Antipyretic: Acetaminophen PRN Antinausea: Ondansetron PRN Bowel regiment PRN Dispo: Likely discharge tomorrow if tolerating PO abx well and medically stable Pain Evaluation: Adequate Pain Control VTE Prophylaxis: Sub-Q Heparin (Unfractionated) Resuscitation Status: CPR: Attempt Resuscitation Attending Statement The patient was seen and examined together with Dr. Grey on 11/13/2016 and I agree with the findings, assessment and plan as stated above. Christopher Grey DO Nov 13, 2016 08:23 Ryan Martinez MD Nov 14, 2016 13:29
[2016-11-13] MEDS ORDERED: guaiFENesin 600 mg ER12 Tablet PO PRN (08:25)
--- NOTE | 2016-11-13 08:33 | PCM.PHAPRO ---
Progress Sepsis RPh AK RM DFF Date Nov 12-Nov 13-Oct INR 1.24 1.35 1.20 INR change 0.11 -0.15 Warf Dose 0 2 2 WILL CONTINUE 2 MG TODAY. PHARMACY WILL CONTINUE TO MONITOR. Eliud Mejias, PharmD Eliud Mejias Nov 13, 2016 08:32
--- NOTE | 2016-11-13 10:43 | NUR ---
Dialysis note 2.5 hrs HD. 1000ml net UF removed. 2 16 g needles to DEE fistula. QB 350 per MD orders. Pt rested comfortably thru tx. See DTR for complete vitals. VSS thru tx. Ate small breakfast. Tamiflu and Renvela given with breakfast. Sureseals/clamps X15 mins post tx. Report given and pt returned to floor stable.
[2016-11-13] MEDS: predniSONE 5 mg Tablet PO SCH (11:20)
[2016-11-13] MEDS: Senna-Docusate 8.6-50 mg Tablet PO SCH (11:20)
[2016-11-13] MEDS: Heparin 5,000 Unit/mL Inj SUBQ SCH ×2 (11:26→22:28)
--- NOTE | 2016-11-13 11:39 | NUR ---
Social Work-initial assessment/ readiness for discharge: Data:See initial assessment. Pt is a 71 y/o female who was admitted on 11/11/16 for pneumonia per H&P. Pt's insurance is [employer] and [employer] supp and PCP is Santino Pratt Md. EMR reviewed. Pt's readmission score is 5-high risk. SW met with pt and Mando at bedside to discuss discharge planning, SW role explained. Pt is alert and oriented x3. Pt has been residing at [facility] for the last few weeks for rehab. PT saw pt yesterday and continues to recommend return to SNF for continued rehab. SW confirmed with pt and that this is the plan. Pt goes to dialysis. Pt has no retirement care insurance or VA benefits. Pt has no history with . SW called [facility] and spoke with admissions who state they are ready to accept pt back tomorrow, access given. Paperwork in the chart. SW will continue to follow. Assessment:Pt who would benefit from SNF. Plan:Pt to discharge back to [facility] with Dr. Farrell to follow when medically stable. Paperwork in the chart. SW will continue to follow. DANIKA Moulton Addendum: 11/13/16 at 1144 by THERESE LEMON Amended: Links added.
--- NOTE | 2016-11-13 11:53 | PCM.PNMED ---
Subjective Date of Service Nov 13, 2016 Subjective Seen at HD unit. Stable. Feeling better, wants to go home. Exam Vital Signs Vital Sign - Last Date Time Temp Pulse Resp B/P Pulse Ox O2 Delivery O2 Flow Rate FiO2 11/13/16 11:31 Supplement Oxygen 11/13/16 09:31 90 11/13/16 05:23 36.8 18 121/60 95 2.00 Intake and Output 11/12/16 11/12/16 11/13/16 Cumulative From/Thru 15:00 23:00 07:00 11/11/16 11:28 - 11/13/16 06:48 Intake Total 110 ml 100 ml 50 ml 1502 ml Output Total 1000 ml 0 ml 0 ml 1000 ml Balance -890 ml 100 ml 50 ml 502 ml Intake Oral 100 ml 50 ml 487 ml IV Total 110 ml 1015 ml Output Urine Total 0 ml 0 ml 0 ml Ultrafiltrate 1000 ml 1000 ml # Bowel Movements 1 1 Exam General appearance: Chronically ill-looking, in no acute distress. HEENT: Atraumatic. Mild pallor. No jaundice. No JVD. Dry mucous membranes. Heart: Regular rhythm. Normal S1, S2. Soft systolic murmur noted. Lungs: improving air entry bilaterally. Scattered rhonchi. no wheezes today. Abdomen: Soft. Active bowel sounds. Extremities: right AVF with good thrill and bruits. No edema, cyanosis. Lab and Diagnostics Result Diagram: 11/13/1661911/13/16619 Assessment & Plan 1. End-stage renal disease on hemodialysis every Tuesday, , Tuesday. 2.5 hr, UF 1L, DFR 600, BFR 400, 3K, 35HCO3, revaclear, right AVF. 2. Suspected hospital-associated pneumonia. 3. Influenza A/Coronovirus infection. 4. Severe aortic stenosis status post attempted transvalvular aortic valve repair. 5. Chronic systolic heart failure with ejection fraction 15%. 6. Prolonged QT syndrome status post automatic implantable cardioverter- defibrillator. 7. Chronic obstructive pulmonary disease requiring home oxygen. 8. HTN with hypertensive nephrosclerosis. PLAN: Next HD on Tuesday. Disposition as per primary team. VTE Prophylaxis: Sub-Q Heparin (Unfractionated) VTE Mechanical Devices: Intermittant Pneumatic CD Resuscitation Status: CPR: Attempt Resuscitation Juan Rodriguez MD Nov 13, 2016 11:53
[2016-11-13] MEDS ORDERED: Levofloxacin 500 mg/100 mL D5W IV SCH (12:30)
[2016-11-13] MEDS: Amoxicillin-Clav 500-125 mg Tablet PO SCH (17:14)
--- NOTE | 2016-11-13 18:41 | NUR ---
Headache Pt c/o of ROBLES/Migraine, pt has Imitrex as home med; however, it's not ordered. Gave litzy KIRSHNA MD for order of Imitrex, pending. Addendum: 11/13/16 at 1843 by TYLOR MENDOZA RN APAP not effective went from 7/10 pain to 5-6/10 pain with additional use of cold compress.
[2016-11-13] MEDS: Lidocaine Topical 5% Patch TOPICAL SCH (22:52)
[2016-11-14 01:13] VITALS: BP 124/80; PULSE 103; RESP 18; O2SAT 98
[2016-11-14 02:02] VITALS: PULSE 95; RESP 20; O2SAT 99
[2016-11-14] MEDS: Albuterol-Ipratropium 3 mL Inhalation Solution NEB SCH ×2 (02:02→08:15)
[2016-11-14 04:56] VITALS: BP 132/67; PULSE 89; RESP 18; O2SAT 98
[2016-11-14 07:34] LABS: INR 1.1 ratio
[2016-11-14 08:15] VITALS: PULSE 98; RESP 18; O2SAT 93
[2016-11-14] MEDS: predniSONE 5 mg Tablet PO SCH (08:31)
[2016-11-14] MEDS: Senna-Docusate 8.6-50 mg Tablet PO SCH (08:31)
[2016-11-14] MEDS: Heparin 5,000 Unit/mL Inj SUBQ SCH (08:32)
--- NOTE | 2016-11-14 08:36 | PCM.PHAPRO ---
Progress Sepsis Date Nov 12-Nov 13-Nov 14-Oct INR 1.24 1.35 1.20 1.10 INR change 0.11 -0.15 -0.1 Warf Dose 0 2 2 5 Vasquez Hernandez Nov 14, 2016 08:36
--- NOTE | 2016-11-14 09:00 | NUR ---
SUNNY signed. DANIKA Moulton
[2016-11-14 09:46] VITALS: BP 130/53; PULSE 100; RESP 18; O2SAT 99
[2016-11-14 10:04] LABS: BASOPHILS % (AUTO) 0.8 % (0-3); EOSINOPHILS % (AUTO) 2.5 % (0-5); MONOCYTES % (AUTO) 12.1 % (4-12); Mean Corpuscular Hemoglobin 32.9 pg (27.0-35.0); Mean Corpuscular Volume 107.1 fL (81-100); NEUTROPHILS % (AUTO) 72.1 % (40-74); Platelet Count 378 bil/L (150-400)
[2016-11-14 10:15] VITALS: PULSE 90
--- NOTE | 2016-11-14 11:14 | NUR ---
Social work-readiness for discharge: Data:EMR Reviewed. Pt is on day 3 of hospitalization for pneumonia per H&P. Pt may be medically stable later today or tomorrow. DAVID confirmed with Cole in Admission at [facility] [phone] will be able to accept pt back when ready. SW updated pt and , agreeable to plan. Paperwork in the chart. SW will continue to follow. Assessment:pt who has been at [facility]. Plan:Pt to discharge back to [facility] with Dr. Farrell to follow when medically stable. Paperwork in the chart. SW will continue to follow. DANIKA Moulton
[2016-11-14] MEDS: Amoxicillin-Clav 500-125 mg Tablet PO SCH (12:39)
--- NOTE | 2016-11-14 12:45 | PCM.DIMED ---
García Nunez DO 11/14/16 1245: Discharge Instructions Date of Service Nov 14, 2016 Dates of Hospitalization Nov 11, 2016 at 15:46 Discharge Diagnosis Discharge Diagnosis Severe sepsis, present on admission, resolved Hospital-acquired pneumonia, present on admission, active, improving. -- Tamiflu 30mg daily for 2 more days -- Augmentin PO 500mg daily for 6 more days Chronic steroid-dependent, present on admission, ongoing Chronic heart failure with reduced ejection fraction, present on admission, ongoing Chronic kidney disease on HD, present admission, ongoing Chronic respiratory failure, present on admission, ongoing Troponin elevation with unknown significant, present on admission, active History of pulmonary embolism with DVT, present on admission, stable Depression/anxiety Essential hypertension, present admission, stable Diet Heart Healthy Activity Other (physical therapy ) Call your provider Fever or Chills, Shortness of breath, Chest pain, Excessive diarrhea Patient Instructions For your stay, you were admitted for pneumonia, likely viral and bacterial. For this, we have gently hydrate you and given you antibiotics plus antivirals. Please, please follow-up within a week on your symptoms. Follow-up Provider: [facility] Follow-up with PCP in: 1 week Ryan Martinez MD 11/14/16 1325: García Nunez DO Nov 14, 2016 12:45 Ryan Martinez MD Nov 14, 2016 13:25
[2016-11-14] MEDS ORDERED: BENZ100C8 PO (12:48)
[2016-11-14] MEDS ORDERED: OSEL30CA PO (12:48)
[2016-11-14] MEDS ORDERED: AMOX1TAB11 PO (12:48)
--- NOTE | 2016-11-14 13:08 | NUR ---
Social Work-discharge: Data:EMR Reviewed. Pt is on day 3 of hospitalization for Upper GI bleed per H&P. Pt is medically stable to discharge today. PT continues to recommend SNF placement. DAVID confirmed with Cole at [facility] that they are able to accept pt back today. DAVID faxed orders and created packet. DAVID spoke with pt's who will provide transport to [facility] today. has portable O2 tank to use. Cole at [facility] updated that pt's is providing transport. DAVID provided packet to . RN,TATYANA,pt/family, and [facility] all updated and agreeable to plan. Assessment:pt who would benefit from return to [facility]. Plan:Pt to discharge back to [facility] today via POV at 1400. RN,UC,pt/family, and [facility] all updated and agreeable to plan. DANIKA Moulton
[2016-11-14] MEDS ORDERED: OXYC5TAB72 PO (13:22)
--- NOTE | 2016-11-14 13:47 | PCM.PNMED ---
Subjective Date of Service Nov 14, 2016 Subjective No acute issue overnight. likely to be d/c'd home today. Exam Vital Signs Vital Sign - Last Date Time Temp Pulse Resp B/P Pulse Ox O2 Delivery O2 Flow Rate FiO2 11/14/16 10:15 90 11/14/16 09:46 36.9 18 130/53 99 Nasal Cannula 2.00 Intake and Output 11/13/16 11/13/16 11/14/16 Cumulative From/Thru 15:00 23:00 07:00 11/11/16 11:28 - 11/14/16 04:57 Intake Total 500 ml 2002 ml Output Total 1000 ml 0 ml 2000 ml Balance -1000 ml 500 ml 2 ml Intake Oral 500 ml 987 ml IV Total 1015 ml Output Urine Total 0 ml 0 ml Ultrafiltrate 1000 ml 2000 ml # Bowel Movements 0 1 Exam General appearance: Chronically ill-looking, in no acute distress. HEENT: Atraumatic. Mild pallor. No jaundice. No JVD. Dry mucous membranes. Heart: Regular rhythm. Normal S1, S2. Soft systolic murmur noted. Lungs: improving air entry bilaterally. Scattered rhonchi. no wheezes today. Abdomen: Soft. Active bowel sounds. Extremities: right AVF with good thrill and bruits. No edema, cyanosis. Lab and Diagnostics Result Diagram: 11/14/1670411/14/16704 Assessment & Plan 1. End-stage renal disease on hemodialysis every Tuesday, , Tuesday. 2. Suspected hospital-associated pneumonia. 3. Influenza A/Coronovirus infection. 4. Severe aortic stenosis status post attempted transvalvular aortic valve repair. 5. Chronic systolic heart failure with ejection fraction 15%. 6. Prolonged QT syndrome status post automatic implantable cardioverter- defibrillator. 7. Chronic obstructive pulmonary disease requiring home oxygen. 8. HTN with hypertensive nephrosclerosis. PLAN: Next HD on Tuesday. Disposition as per primary team. VTE Prophylaxis: Sub-Q Heparin (Unfractionated) VTE Mechanical Devices: Intermittant Pneumatic CD Resuscitation Status: CPR: Attempt Resuscitation Juan Rodriguez MD Nov 14, 2016 13:46
--- NOTE | 2016-11-14 14:20 | NUR ---
Discharge Pt discharged to [facility] in [place] via private vehicle with . Report given to Briseyda Gomez, at [facility]. Personal belongings accounted for and left with pt.
--- NOTE | 2016-11-15 14:25 | PCM.DC.MED ---
Discharge Summary Date of Service Nov 14, 2016 Dates of Hospitalization Date of Hospital Admission Nov 11, 2016 at 15:46 Date of Discharge: Nov 14, 2016 Providers: Admitting Physician: Ryan Martinez MD Primary Care Physician: Santino Pratt MD Attending Physician: Ryan Martinez MD Diagnosis at Time of Discharge Diagnosis at Time of Discharge Severe sepsis, present on admission, resolved Hospital-acquired pneumonia, present on admission, active, improving. -- Tamiflu 30mg daily for 2 more days -- Augmentin PO 500mg daily for 6 more days Chronic steroid-dependent, present on admission, ongoing Chronic heart failure with reduced ejection fraction, present on admission, ongoing Chronic kidney disease on HD, present admission, ongoing Chronic respiratory failure, present on admission, ongoing Troponin elevation with unknown significant, present on admission, active History of pulmonary embolism with DVT, present on admission, stable Depression/anxiety Essential hypertension, present admission, stable Brief History Patient is 71yof from [facility] with HMx significant for CHF EF 15-20%, severe aortic stenosis, ESRD on HD, chronic respiratory failure on 2L home O2, and chronic steroids dependent presents with 4 days of weakness and cough. Per patient, reports dry cough for several weeks now. She denies any fevers chills nausea vomiting or diarrhea. Today however, patient woke up with generalize weakness and body aches. Nevertheless, patient went to dialysis. At dialysis, it was reported that she had a temperature of 38.4C and blood pressure dropped of 87/36. Patient was admitted to the ED for further evaluation. Patient recently (09/2016) underwent TAPVR procedure at for her nonrheumatic critical aortic stenosis. This was unsuccessful however. She was sent to [facility] [place] for further rehabilitation status post surgery. Hospital Course Patient is 71yof from [facility] with HMx significant for CHF EF 15-20%, severe aortic stenosis, ESRD on HD, chronic respiratory failure on 2L home O2, and chronic steroids dependent presented with weakness and cough, admitted with severe sepsis secondary to HCAP pneumonia and Influenza A. BP was initially tenuous however, responded well to small boluses IV fluids. Triple abx zosyn, Levaquin, and vancomycin were originally given and shortly deescalate with MRSA negative. She completed 2/5 day course of tamiflu renally dosed at discharge to [facility]. She will need to complete 3 more days of tamiflu and 5 more days of Augmentin. Severe sepsis, present on admission, resolved -- Patient with SIRS positive on admission with temperature 38.4, HR 12, RR 23. and WBC 13.3, left shift, hypotensive -- Chest x-ray showed bilateral pleural effusion possibly pneumonia. -- She receive a total of 1.5 L of fluid with good effect. Blood pressure stable, lactic acid within normal limits -- Patient also received Zosyn, levofloxacin, vancomycin within the three-hour sepsis bundle. Hospital-acquired pneumonia, present on admission, active, improving. -- Blood, sputum, urine culture negative. MRSA screening-negative, Viral PCR positive for Influenza A and Adenovirus -- Procalcitonin negative, Careful to interpret pro-calcitonin level as patient is immune suppressed. -- Started Tamiflu 30mg PO after Hemodialysis for total of 5 days in her system. First dose Tamiflu given 11/13 -- Abx deescalate to Augmentin. D/c on Augmentin for another 5 day's course Chronic steroid-dependent, present on admission, ongoing -- Patient reports taking prednisone 5 mg daily -- Unknown the reason to why she is on chronic prednisone. But obviously we cannot discontinue. -- Resume prednisone 5 mg qd Chronic heart failure with reduced ejection fraction, present on admission, stable -- Estimated EF 15-20%. -- This is secondary to critical aortic stenosis. -- Conservative on fluids. Bolus if BP is less than 90/50. Chronic kidney disease on HD, present admission, ongoing -- Has HD Tuesday and Tuesday -- Continue to evaluate electrolyte abnormality. -- Patient will be dialyzed per nephrology. Team appreciate input. -- Tolerating HD well. Had 1 HD on 11/12 -- resume normal scheduled programming 11/13. Chronic respiratory failure, present on admission, ongoing -- Chronic, currently back down to 2L NC -- Duonebs Q6h and also prn for SOB -- Encouraged Acapella. -- D/c on Guaifenesin 600mg bid prn cough Troponin elevation with unknown significant, present on admission, active -- EKG looks benign -- Troponins have been stable, likely due to CKD History of pulmonary embolism with DVT, present on admission, stable -- Restarted warfarin dose per pharmacy Depression/anxiety -- Fluoxetine 20 mg by mouth evening, as well as alprazolam 0.5 mg every 6 hours , and mirtazapine 30 mg hs History of PE/DVT present admission, ongoing, ongoing -- Warfarin dosing per pharmacy -- Not therapeutic yet. Essential hypertension, present admission, stable -- Holding all antihypertensive medication in the setting of severe sepsis -- Resume home medications at d/c Exam Vital Signs (Last) Date Time Temp Pulse Resp B/P Pulse Ox O2 Delivery O2 Flow Rate FiO2 11/14/16 10:15 90 11/14/16 09:46 36.9 18 130/53 99 Nasal Cannula 2.00 Exam Gen: pleasant. thin, frail, ro face. HEENT: PERRLA, mucous membranes moist and pink Cardio: Regular rate and rhythm, holosystolic murmur noted, no rub or gallop. Pulm: CTAB, No wheezing or rhonchi noted. Normal resp effort. Abd: Soft, nontender, nondistended. Normoactive BS+ Extremities: No clubbing or cyanosis,. B/L pitting edema improving. Skin: Warm, dry, intact. Neuro: AOx3, moving equally on all four limbs Psych: Normal mood and affect. Test 11/11/16 12:08 11/11/16 17:19 11/11/16 19:57 11/12/16 02:20 Total Bilirubin 0.9mg/dL (0.0-1.2) Aspartate Amino Transf (AST/SGOT) 30U/L (0-50) Alanine Aminotransferase (ALT/SGPT) 15U/L (0-32) Alkaline Phosphatase 258U/L (25-165) Total Protein 6.3g/dL (6.4-8.4) Procalcitonin 0.42ng/mL (See Comment) Hemoglobin A1c 5.1% (4.8-5.6) Prealbumin 17mg/dL (20-40) Lactic Acid Level 0.9mmol/L (0.4-2.0) Troponin T 0.294ug/L (0.0-0.011) Test 11/12/16 06:35 11/13/16 06:20 11/14/16 07:05 Magnesium Level 1.9mg/dL (1.6-2.6) Random Vancomycin Level 14.6ug/mL Rx Phosphorus Level 2.4mg/dL (2.5-4.9) Albumin 3.0g/dL (3.4-5.0) White Blood Count 5.3th/mm3 (3.8-10.1) Red Blood Count 2.83mil/mm3 (3.90-5.20) Hemoglobin 9.3g/dL (12.0-15.6) Hematocrit 30.3% (35.0-46.0) Mean Corpuscular Volume 107.1fL (81-100) Mean Corpuscular Hemoglobin 32.9pg (27.0-35.0) Mean Corpuscular Hemoglobin Concent 30.7% (32.0-37.0) Red Cell Distribution Width 17.5% (12.3-15.4) Platelet Count 378bil/L (150-400) Neutrophils (%) (Auto) 72.1% (40-74) Lymphocytes (%) (Auto) 11.6% (14-46) Monocytes (%) (Auto) 12.1% (4-12) Eosinophils (%) (Auto) 2.5% (0-5) Basophils (%) (Auto) 0.8% (0-3) Prothrombin Time 11.8sec (8.1-12.5) Prothromb Time International Ratio 1.10ratio Sodium Level 140mEq/L (134-144) Potassium Level 4.7mEq/L (3.5-5.2) Chloride Level 101mEq/L (97-108) Carbon Dioxide Level 26mmol/L (18-29) Blood Urea Nitrogen 23mg/dL (8-27) Creatinine 3.84mg/dL (0.57-1.00) Estimat Glomerular Filtration Rate 17mL/min (>59) Glucose Level 78mg/dL (60-99) Calcium Level 9.1mg/dL (8.5-10.1) Vancomycin Level Trough 11.5mcg/mL Discharge Medications Discharge Medications Amoxicillin/Clav K 500-125 mg (Amoxicillin/Clav K 500-125 mg) 1 Each Tablet 1 TAB PO Q24H Prescribed by: JAROD NUNEZ DO Fluoxetine (Fluoxetine) 20 Mg Tablet 20 MG PO evening (Reported) Folic Acid/Vitamin B Comp W-C (Renal Caps Softgel) 1 Mg Capsule 1 MG PO DAILY ( Reported) Ipratropium/Albuterol Sulfate (Iprat-Albut 0.5-3(2.5) mg/3 mL Inhalant Soln) 3 Ml Ampul.neb 3 ML IH Q6 (Reported) Levothyroxine (Levothyroxine) 88 Mcg Tablet 88 MCG PO DAILY (Reported) Lidocaine (Lidocaine) 700 Mg Adh..patch 1 PATCH TOP daily on hs, off AM ( Reported) Lisinopril (Lisinopril) 5 Mg Tablet 5 MG PO BID (Reported) Metoprolol Succinate ER (Metoprolol Succinate ER) 25 Mg Tab.er.24h 12.5 MG PO BID (Reported) Mirtazapine (Mirtazapine) 15 Mg Tablet 30 MG PO HS (Reported) Multivitamin (Multi Vitamin Daily) 1 Each Tablet 1 EACH PO DAILY (Reported) Omeprazole (Omeprazole) 20 Mg Capsule.dr 20 MG PO BIDAC (Reported) Oseltamivir Phosphate (Tamiflu) 30 Mg Capsule 30 MG PO DIRECTED Prescribed by: JAROD NUNEZ DO Prednisone (PredniSONE) 5 Mg Tab 5 MG PO DAILY (Reported) Sevelamer Carbonate (Renvela) 800 Mg Tablet 800 MG PO TIDWM (Reported) Trazodone (Trazodone) 50 Mg Tablet 25 MG PO HS (Reported) Warfarin Sodium (Warfarin Sodium) 1 Mg Tablet 1 MG PO every other day (Reported ) Warfarin Sodium (Warfarin Sodium) 3 Mg Tablet 3 MG PO every other day (Reported ) As needed Acetaminophen (Acetaminophen) 325 Mg Capsule 650 MG PO QID PRN PRN For Pain ( Reported) Albuterol HFA (Proair HFA) 8.5 Gm Hfa.aer.ad 2 PUFFS INHALATION Q4H PRN PRN For Shortness of Breath (Reported) Albuterol Neb Soln (Albuterol Neb Soln) 2.5 Mg/3 Ml Vial.neb 2.5 MG INHALATION TID PRN PRN For Shortness of Breath (Reported) Alprazolam (Alprazolam) 0.5 Mg Tablet 0.5 MG PO DAILY PRN PRN For Anxiety ( Reported) Benzonatate (Benzonatate) 100 Mg Capsule 100 MG PO TID PRN PRN For Cough Prescribed by: JAROD NUNEZ DO Ondansetron (Ondansetron) 4 Mg Tablet 4 MG PO QID PRN PRN For Nausea (Reported) Promethazine (Promethazine) 25 Mg Tablet 25 MG PO DAILY PRN PRN For Nausea ( Reported) Promethazine HCl (Phenergan) 25 Mg Supp.rect 25 MG RC prn PRN PRN For Nausea ( Reported) Sumatriptan (Imitrex) 100 Mg Tablet 100 MG PO DAILY PRN PRN FOR MIGRAINE HEADACHE (Reported) may repeat in 2 hours, max dose 200 mg in 24 hrs oxyCODONE (oxyCODONE) 10 Mg Tablet 10 MG PO QID PRN PRN For Pain (Reported) oxyCODONE (oxyCODONE) 5 Mg Tablet 10 MG PO TID PRN PRN For Moderate Pain Prescribed by: JAROD NUNEZ DO Followup Plan Discharge Diet: Heart Healthy Discharge Activity: Other (physical therapy ) Patient Instructions For your stay, you were admitted for pneumonia, likely viral and bacterial. For this, we have gently hydrate you and given you antibiotics plus antivirals. Please, please follow-up within a week on your symptoms. Follow-up Provider: [facility] Follow-up with PCP in: 1 week Time spent 40 minutes Attending Statement The patient was seen and examined together with Dr. Jarod Moreno 11/14/2016 and I have added additional information to the note above copies to: Santino Pratt MD; [facility] Jarod Nunez DO Nov 15, 2016 14:25 Ryan Martinez MD Nov 23, 2016 10:50
== END 2016-11-14 14:15 | DRG 871 ==
LOC: SED 11:04 → MPC 15:46
PROVIDERS: ADMIT Family Medicine; ATTEND Family Medicine
PROC: 5A1D60Z (ICD-10-PCS; principal; 2016-11-12)
DX: A41.9 Sepsis, unspecified organism (principal); J18.9 Pneumonia, unspecified organism; N18.6 End stage renal disease; J96.10 Chronic respiratory failure, unspecified whether with hypoxia or hypercapnia; T86.12 Kidney transplant failure; I50.22 Chronic systolic (congestive) heart failure; I13.2 Hypertensive heart and chronic kidney disease with heart failure and with stage 5 chronic kidney disease, or end stage renal disease; Z86.711 Personal history of pulmonary embolism; Z86.718 Personal history of other venous thrombosis and embolism; Z99.2 Dependence on renal dialysis; Z99.81 Dependence on supplemental oxygen; Z79.52 Long term (current) use of systemic steroids; Z86.11 Personal history of tuberculosis; Z79.01 Long term (current) use of anticoagulants; F32.9 Major depressive disorder, single episode, unspecified; F41.9 Anxiety disorder, unspecified; I35.0 Nonrheumatic aortic (valve) stenosis; I45.81 Long QT syndrome; Z95.810 Presence of automatic (implantable) cardiac defibrillator; J10.1 Influenza due to other identified influenza virus with other respiratory manifestations; B97.29 Other coronavirus as the cause of diseases classified elsewhere; R65.20 Severe sepsis without septic shock

== ENCOUNTER 2016-12-07 16:47 | Emergency (ER) | payer MEDICARE, MEDICAID ==
[~2016-12-07 16:47] MED LIST changes: +ACET325C PO; +AMOX1TAB11 PO; +BENZ100C8 PO; -ERGO500050 PO; +FOLI1CAP8 PO; +IPRA3AMP IH; +LISI-571 PO; +MULT-1018 PO; -NEPHVIT PO; +ONDA-53 PO; +OSEL30CA PO; +OXYC5TAB72 PO; +TRAZ-115 PO; +WARF1TAB6 PO; +WARF3TAB7 PO
[2016-12-07 16:53] VITALS: BP 115/63; PULSE 89; RESP 20; O2SAT 100
[2016-12-07] MEDS ORDERED: Desmopressin 100 mCg/mL 5 mL Nasal Spray NASAL ONE (17:15)
--- NOTE | 2016-12-07 17:15 | ED.REPORT ---
HPI-General Illness Date of Service Dec 07, 2016 ED Provider: Reese Viera MD The patient is a 71 year old female with history of ESRD on dialysis s/p kidney transplant, chronic hypoxemic respiratory failure on home oxygen, congestive heart failure, prolonged QT syndrome s/p AICD, anemia, PE and DVT, chronic steroid dependence, hyperlipidemia, hypothyroidism, and hypertension, who was sent to the emergency department by EMS for a fistula problem. The patient had some bleeding from her fistula on Tuesday. Today the bleeding was much worse. The patient was placed on Warfarin in late September for a blood clot in her leg. Her last INR check was on the of this month and it was at 2.0. She has noticed some dizziness but this is chronic. She was discharged from the hospital last week with some medication changes. She denies fever, chills, chest pain, shortness of breath, cough, nausea, vomiting, diarrhea, abdominal pain, weakness or numbness. Nursing Notes Stated Complaint: BLEEDING FISTULA Chief Complaint: General Complaint Nursing Notes Reviewed: Yes Allergies: Coded Allergies: morphine (Verified Allergy, Severe, depressed loc, TOLERATES HYDROCODONE, 07/06/16) hydromorphone (Unverified Allergy, Mild, 07/06/16) metoclopramide HCl (Verified Adverse Reaction, Severe, Nausea,Vomiting, ) Scheduled Amoxicillin/Clav K 500-125 mg (Amoxicillin/Clav K 500-125 mg) 1 Each Tablet 1 TAB PO Q24H Fluoxetine (Fluoxetine) 20 Mg Tablet 20 MG PO evening Folic Acid/Vitamin B Comp W-C (Renal Caps Softgel) 1 Mg Capsule 1 MG PO DAILY Ipratropium/Albuterol Sulfate (Iprat-Albut 0.5-3(2.5) mg/3 mL Inhalant Soln) 3 Ml Ampul.neb 3 ML IH Q6 Levothyroxine (Levothyroxine) 88 Mcg Tablet 88 MCG PO DAILY Lidocaine (Lidocaine) 700 Mg Adh..patch 1 PATCH TOP daily on hs, off AM Lisinopril (Lisinopril) 5 Mg Tablet 5 MG PO BID Metoprolol Succinate ER (Metoprolol Succinate ER) 25 Mg Tab.er.24h 12.5 MG PO BID Mirtazapine (Mirtazapine) 15 Mg Tablet 30 MG PO HS Multivitamin (Multi Vitamin Daily) 1 Each Tablet 1 EACH PO DAILY Omeprazole (Omeprazole) 20 Mg Capsule.dr 20 MG PO BIDAC Oseltamivir Phosphate (Tamiflu) 30 Mg Capsule 30 MG PO DIRECTED Prednisone (PredniSONE) 5 Mg Tab 5 MG PO DAILY Sevelamer Carbonate (Renvela) 800 Mg Tablet 800 MG PO TIDWM Trazodone (Trazodone) 50 Mg Tablet 25 MG PO HS Warfarin Sodium (Warfarin Sodium) 1 Mg Tablet 1 MG PO every other day Warfarin Sodium (Warfarin Sodium) 3 Mg Tablet 3 MG PO every other day Scheduled PRN Acetaminophen (Acetaminophen) 325 Mg Capsule 650 MG PO QID PRN PRN For Pain Albuterol HFA (Proair HFA) 8.5 Gm Hfa.aer.ad 2 PUFFS INHALATION Q4H PRN PRN For Shortness of Breath Albuterol Neb Soln (Albuterol Neb Soln) 2.5 Mg/3 Ml Vial.neb 2.5 MG INHALATION TID PRN PRN For Shortness of Breath Alprazolam (Alprazolam) 0.5 Mg Tablet 0.5 MG PO DAILY PRN PRN For Anxiety Benzonatate (Benzonatate) 100 Mg Capsule 100 MG PO TID PRN PRN For Cough Ondansetron (Ondansetron) 4 Mg Tablet 4 MG PO QID PRN PRN For Nausea Promethazine (Promethazine) 25 Mg Tablet 25 MG PO DAILY PRN PRN For Nausea Promethazine HCl (Phenergan) 25 Mg Supp.rect 25 MG RC prn PRN PRN For Nausea Sumatriptan (Imitrex) 100 Mg Tablet 100 MG PO DAILY PRN PRN FOR MIGRAINE HEADACHE may repeat in 2 hours, max dose 200 mg in 24 hrs oxyCODONE (oxyCODONE) 10 Mg Tablet 10 MG PO QID PRN PRN For Pain oxyCODONE (oxyCODONE) 5 Mg Tablet 10 MG PO TID PRN PRN For Moderate Pain General Time Seen by MD: 17:15 Chief Complaint Other (fistula problem) Hx Obtained From: Patient, Spouse, EMS Arrived By: Ambulance Sudden in Onset?: Yes Onset Occurred: 5 - 8 hours ago Symptom Duration: Since onset Severity: Current: No pain currently Severity: Maximum: No pain Recent Healthcare: Recent doctor visit, Recent hospitalization Similar Sx Previous: No Past Medical History Past Medical History Notes: On prednisone 5 mg qd Past Medical History Hx STEMI ESRD on dialysis, prolonged QT Chronic hypoxemic respiratory failure on home oxygen Congestive heart failure Prolonged QT syndrome status post AICD Anemia due to renal failure History of pneumonia History of orthostatic hypotension History of pulmonary embolism and DVT diagnosed in 12/01/2012 no longer taking anticoagulation for unknown reasons. Chronic steroid dependency History of hepatitis B Hypothyroidism Depression Hyperlipidemia Hypertension History of miliary tuberculosis in 2010 treated Past Surgical History Pacemaker Kidney transplant 1999 Cholecystectomy Appendectomy Family History Noncontributory Smoking History Never Smoker Social History Alcohol Use: Denies alcohol use Drug Use: Denies drug use Other Social History: Good social support, , Local resident Ambulatory Status Independent Review of Systems +fistula problem Full Review of Systems Constitutional: Denies: Chills, Fever Respiratory: Denies: Non-productive cough, Shortness of breath Cardiovascular: Denies: Chest pain GI: Denies: Abdominal pain, Diarrhea, Nausea, Vomiting Neurologic: Reports: Dizziness (chronic), Denies: Focal weakness, Numbness Complete sys rev & neg: except as marked. Physical Exam Vital Signs Vital Signs Date Time Temp Pulse Resp B/P Pulse Ox O2 Delivery O2 Flow Rate FiO2 12/07/16 19:29 37.2 82 20 108/61 100 Nasal Cannula 2 12/07/16 18:38 37.1 86 20 112/60 100 Nasal Cannula 2 12/07/16 16:53 37.1 89 20 115/63 100 Nasal Cannula 2 Initial VS: Reviewed ENT: Mucous membranes moist, Conjunctiva normal, No scleral icterus Respiratory: Breath sounds normal, Clear to auscultation, No respiratory distress Cardiovascular: Regular rate & rhythm, Heart sounds normal, Intact distal pulses Abdomen / GI: Soft, Non-tender, No guarding, No rebound, No distention Extremities: Vascular intact, Neuro intact Skin: Warm, Dry, No cyanosis Neurologic: Alert, Oriented, Nonfocal Psychiatric: Mood/affect normal, Behavior normal, Normal thought content General/Constitutional: Awake, Alert, Cooperative Head / Eyes: Normocephalic, PERRL, EOMI There is some subcutaneous edema to her right lower lid Neck: Supple, Non-tender, No midline vertebral tend Neck Vascular: Positive: JVD mild Upper Extremities Upper Extremity / MS: Neurologic intact, Vascular intact RUE: Her fistula is covered with a bandage. There is no bleeding through the bandage. Her hand is warm with good cap refill. Sensation is intact. Lower Extremity / Pelvis / MS: No swelling, Neurologic intact, Vascular intact , No edema Interpretation & Diagnostics Lab Results Interpretation Test 12/07/16 17:16 Hold Purple Top Tube Received (Received) Prothrombin Time 45.5sec (8.1-12.5) Prothromb Time International Ratio 4.13ratio Hold Blue Top Tube Received (Received) Hold [place] Top Tube Received (Received) Re-Eval/Medical Decision Med Decision/Clinical Course 71-year-old female end-stage renal disease on dialysis and Coumadin for blood clot presenting with fistula bleeding from dialysis. Patient was signed out to me by Dr. Martinez with labs pending. INR is 4. Hemostasis achieved with pressure. Patient was observed for greater than 30 minutes and hemostasis achieved and patient was discharged home with return precautions. Advised pressure at home if any recurrent bleeding. She is advised to stop her Coumadin tonight as she was supratherapeutic and she is to have it rechecked tomorrow by her Coumadin nurse and follow up with primary doctor for further Coumadin dosing. Source of Hx: Old records, EMS, Family Time of Eval: 18:30 Patient Status: Condition improved Re-Evaluation/Progress Note: 18:26 Pt rechecked, whose bleeding appears to have stopped. The plan for discharge assuming no complications is discussed. The pt understands and agrees with the plan. All questions are addressed at this time. Counseled Regarding: Diagnosis, Lab results, Need for follow-up, When/why to return to ED Discharge & Departure Shift Change Sign-Out Patient Care Transferred: Yes Discussed Complaint(s): Yes Laboratory Evaluation: Ordered, not yet done Response to Therapy: Discussed Primary Impression: Hemorrhage of arteriovenous fistula Encounter type: initial encounter Qualified Code: T82.838A - Hemorrhage of vascular prosthetic devices, implants and grafts, initial encounter Additional Impression: Anticoagulated Disposition: Home Discharge Condition All VS Reviewed: Yes Condition: Stable Additional Instructions: Thank you for entrusting us with your care today. Do not take your regular dose of Coumadin tonight. If the fistula begins to bleed again, put pressure on it. If you are unable to make the bleeding stop or if you experience symptoms of anemia (lightheadedness, dizziness, chest pain, shortness of breath, weakness), return to the emergency department immediately. Have your INR checked tomorrow and follow up with your primary care physician for further evaluation. Referrals: Santino Pratt MD (PCP) Care Transferred to: Dr. Viera Care Transferred at: 16:01 Jannie Attestation Portions of this note were transcribed by Linda Haines. Kiara, Dr. Martinez personally performed the history, physical exam and medical decision-making; I reviewed and confirmed the accuracy of the information in the transcribed note. Signed by: Jannie Huynh, 12/07/2016 at 1605. Portions of this note were transcribed by Emmett Cordova. Kiara, Dr. Viera personally performed the history, physical exam and medical decision-making; I reviewed and confirmed the accuracy of the information in the transcribed note. Signed by: Jannie Thorne, 12/07/2016 and 18:39. copies to: Santino Pratt MD, Jena M MD Dec 07, 2016 17:15 Linda Haines Dec 07, 2016 17:28 EMMETT CORDOVA Dec 07, 2016 18:39 Reese Viera MD Dec 07, 2016 19:11
[2016-12-07 17:48] LABS: INR 4.13 ratio
[2016-12-07 18:38] VITALS: BP 112/60; PULSE 86; RESP 20; O2SAT 100
[2016-12-07 19:29] VITALS: BP 108/61; PULSE 82; RESP 20; O2SAT 100
== END 2016-12-07 19:30 | disposition home or self-care (01) ==
LOC: SED 16:47 → EDUNIT# 16:47 → EDBD 16:47 → SED 19:30
DX: T82.838A Hemorrhage due to vascular prosthetic devices, implants and grafts, initial encounter (principal); Y84.1 Kidney dialysis as the cause of abnormal reaction of the patient, or of later complication, without mention of misadventure at the time of the procedure; Y93.9 Activity, unspecified; Y99.9 Unspecified external cause status; R42 Dizziness and giddiness; N18.6 End stage renal disease; I12.0 Hypertensive chronic kidney disease with stage 5 chronic kidney disease or end stage renal disease; I50.9 Heart failure, unspecified; E78.5 Hyperlipidemia, unspecified; E03.9 Hypothyroidism, unspecified; I25.2 Old myocardial infarction; Z79.01 Long term (current) use of anticoagulants; Z99.2 Dependence on renal dialysis; Z95.0 Presence of cardiac pacemaker; Z94.0 Kidney transplant status; Z86.19 Personal history of other infectious and parasitic diseases; Z88.8 Allergy status to other drugs, medicaments and biological substances; Z88.5 Allergy status to narcotic agent

== ENCOUNTER 2017-01-23 10:54 | Emergency (ER) | payer MEDICARE, MEDICAID ==
[~2017-01-23] VITALS: Ht 167.6 cm; Wt 51.0 kg
[2017-01-23 11:05] VITALS: BP 88/54; PULSE 96; RESP 16; O2SAT 97
--- NOTE | 2017-01-23 11:30 | ED.REPORT ---
HPI-General Illness Date of Service Jan 23, 2017 ED Provider: Reese Viera MD Patient is a 71 year old female with a complex medical hx on Warfarin who presents to the ED complaining of fistula bleeding onset today. She has been experiencing bleeding problems intermittently onset 4 days ago. She has also been hypotensive for the last few weeks. She denies lightheadedness, weakness, dizziness, chest pain, difficultly breathing, fever, nausea, vomiting, hematochezia,or any other symptoms. She is on 6 mo of Warfarin for a blood clot in her leg. She has not taken her Warfarin yet today. She had dialysis last night Nursing Notes Stated Complaint: FISTULA BLEEDING Chief Complaint: General Complaint Nursing Notes Reviewed: Yes Allergies: Coded Allergies: morphine (Verified Allergy, Severe, depressed loc, TOLERATES HYDROCODONE, 07/06/16) hydromorphone (Unverified Allergy, Mild, 07/06/16) metoclopramide HCl (Verified Adverse Reaction, Severe, Nausea,Vomiting, ) Scheduled Amoxicillin/Clav K 500-125 mg (Amoxicillin/Clav K 500-125 mg) 1 Each Tablet 1 TAB PO Q24H Fluoxetine (Fluoxetine) 20 Mg Tablet 20 MG PO evening Folic Acid/Vitamin B Comp W-C (Renal Caps Softgel) 1 Mg Capsule 1 MG PO DAILY Ipratropium/Albuterol Sulfate (Iprat-Albut 0.5-3(2.5) mg/3 mL Inhalant Soln) 3 Ml Ampul.neb 3 ML IH Q6 Levothyroxine (Levothyroxine) 88 Mcg Tablet 88 MCG PO DAILY Lidocaine (Lidocaine) 700 Mg Adh..patch 1 PATCH TOP daily on hs, off AM Lisinopril (Lisinopril) 5 Mg Tablet 5 MG PO BID Metoprolol Succinate ER (Metoprolol Succinate ER) 25 Mg Tab.er.24h 12.5 MG PO BID Mirtazapine (Mirtazapine) 15 Mg Tablet 30 MG PO HS Multivitamin (Multi Vitamin Daily) 1 Each Tablet 1 EACH PO DAILY Omeprazole (Omeprazole) 20 Mg Capsule.dr 20 MG PO BIDAC Oseltamivir Phosphate (Tamiflu) 30 Mg Capsule 30 MG PO DIRECTED Prednisone (PredniSONE) 5 Mg Tab 5 MG PO DAILY Sevelamer Carbonate (Renvela) 800 Mg Tablet 800 MG PO TIDWM Trazodone (Trazodone) 50 Mg Tablet 25 MG PO HS Warfarin Sodium (Warfarin Sodium) 1 Mg Tablet 1 MG PO every other day Warfarin Sodium (Warfarin Sodium) 3 Mg Tablet 3 MG PO every other day Scheduled PRN Acetaminophen (Acetaminophen) 325 Mg Capsule 650 MG PO QID PRN PRN For Pain Albuterol HFA (Proair HFA) 8.5 Gm Hfa.aer.ad 2 PUFFS INHALATION Q4H PRN PRN For Shortness of Breath Albuterol Neb Soln (Albuterol Neb Soln) 2.5 Mg/3 Ml Vial.neb 2.5 MG INHALATION TID PRN PRN For Shortness of Breath Alprazolam (Alprazolam) 0.5 Mg Tablet 0.5 MG PO DAILY PRN PRN For Anxiety Benzonatate (Benzonatate) 100 Mg Capsule 100 MG PO TID PRN PRN For Cough Ondansetron (Ondansetron) 4 Mg Tablet 4 MG PO QID PRN PRN For Nausea Promethazine (Promethazine) 25 Mg Tablet 25 MG PO DAILY PRN PRN For Nausea Promethazine HCl (Phenergan) 25 Mg Supp.rect 25 MG RC prn PRN PRN For Nausea Sumatriptan (Imitrex) 100 Mg Tablet 100 MG PO DAILY PRN PRN FOR MIGRAINE HEADACHE may repeat in 2 hours, max dose 200 mg in 24 hrs oxyCODONE (oxyCODONE) 10 Mg Tablet 10 MG PO QID PRN PRN For Pain oxyCODONE (oxyCODONE) 5 Mg Tablet 10 MG PO TID PRN PRN For Moderate Pain General Time Seen by MD: 11:09 Chief Complaint Other (Bleeding problem) Hx Obtained From: Patient, Spouse Arrived By: Walk-in Sudden in Onset?: Yes Onset Occurred: 4 days ago Symptom Duration: Intermittent Past Medical History Past Medical History Notes: On prednisone 5 mg qd Past Medical History Hx STEMI ESRD on dialysis, prolonged QT Chronic hypoxemic respiratory failure on home oxygen Congestive heart failure Prolonged QT syndrome status post AICD Anemia due to renal failure History of pneumonia History of orthostatic hypotension History of pulmonary embolism and DVT diagnosed in 12/01/2012 no longer taking anticoagulation for unknown reasons. Chronic steroid dependency History of hepatitis B Hypothyroidism Depression Hyperlipidemia Hypertension History of miliary tuberculosis in 2010 treated Past Surgical History Pacemaker Kidney transplant 1999 Cholecystectomy Appendectomy Family History Noncontributory Smoking History Never Smoker Social History Alcohol Use: Denies alcohol use Drug Use: Denies drug use Other Social History: Good social support, , Local resident Ambulatory Status Independent Review of Systems +Bleeding from fistula Full Review of Systems Constitutional: Denies: Fever Respiratory: Denies: Shortness of breath Cardiovascular: Denies: Chest pain GI: Denies: Hematochezia, Nausea, Vomiting Neurologic: Denies: Dizziness, Lightheaded, Weakness Complete sys rev & neg: except as marked. Physical Exam Vital Signs Vital Signs Date Time Temp Pulse Resp B/P Pulse Ox O2 Delivery O2 Flow Rate FiO2 01/23/17 13:56 36.4 90 16 104/57 99 Nasal Cannula 01/23/17 13:02 90 16 100/50 100 Nasal Cannula 2.5 01/23/17 11:05 36.1 96 16 88/54 97 Room Air Initial VS: Reviewed General/Constitutional: Well-developed, Well-nourished Head / Eyes: Atraumatic, Normocephalic Neck: Full range of motion Respiratory: Breath sounds normal, Clear to auscultation, No respiratory distress Cardiovascular: Regular rate & rhythm, Heart sounds normal Abdomen / GI: Soft, Non-tender Skin: Warm, Dry Neurologic: Alert, Oriented, Nonfocal Psychiatric: Mood/affect normal, Behavior normal, Normal thought content Upper Extremities Upper Extremity / MS: Inspection NL Fistula in R arm Interpretation & Diagnostics Lab Results Interpretation Result Diagram: 01/23/17 1218 Test 01/23/17 12:18 White Blood Count 6.6th/mm3 (3.8-10.1) Red Blood Count 2.82mil/mm3 (3.90-5.20) Hemoglobin 9.5g/dL (12.0-15.6) Hematocrit 30.9% (35.0-46.0) Mean Corpuscular Volume 109.6fL (81-100) Mean Corpuscular Hemoglobin 33.7pg (27.0-35.0) Mean Corpuscular Hemoglobin Concent 30.7% (32.0-37.0) Red Cell Distribution Width 16.0% (12.3-15.4) Platelet Count 251bil/L (150-400) Neutrophils (%) (Auto) 71.6% (40-74) Lymphocytes (%) (Auto) 13.1% (14-46) Monocytes (%) (Auto) 13.7% (4-12) Eosinophils (%) (Auto) 0.2% (0-5) Basophils (%) (Auto) 0.9% (0-3) Prothrombin Time 36.4sec (8.1-12.5) Prothromb Time International Ratio 3.32ratio Re-Eval/Medical Decision Med Decision/Clinical Course 71-year-old female on Coumadin presenting with bleeding from her right upper extremity fistula 3 days. It resolved prior to arrival. She has no sign symptoms anemia. Her hemoglobin is 9.5 which is stable for her. Her Coumadin is slightly supratherapeutic and she was advised not to take it today. Her blood pressure was initially low 90s over 50s with no symptoms. She improved to systolics of 100s and discussed with patient and she was discharged home with plans to follow up with primary doctor tomorrow. Return precautions given. Time of Eval: 13:30 Re-Evaluation/Progress Note: Rechecled patient. She is feeling much better and would like to go home. Counseled Regarding: Diagnosis, Lab results, Need for follow-up, When/why to return to ED Discharge & Departure Primary Impression: Bleeding Additional Impression: Hypotension Hypotension type: unspecified hypotension type Qualified Code: I95.9 - Hypotension, unspecified Disposition: Home Discharge Condition All VS Reviewed: Yes Condition: Improved Additional Instructions: Thank you for entrusting us with your care. Your lab results are reassuring. Please follow up with your primary physician tomorrow. Please return to the emergency department if you experience any shortness of breath, signs of anemia (lightheadedness, dizziness, bleeding, weakness), chest pain, or any new or worsening symptoms. Referrals: Santino Partt MD (PCP) Scribe Attestation Portions of this note were transcribed by Rico Kumar. I, Dr. Viera personally performed the history, physical exam and medical decision-making; I reviewed and confirmed the accuracy of the information in the transcribed note. Signed by: Rico Kumar 01/23/2017, 3844 copies to: Santino Pratt MD, Ben M MD Jan 23, 2017 11:30 RICO KUMAR Jan 23, 2017 11:38
[2017-01-23] MEDS ORDERED: 0.9% Sodium Chloride 250 ML IV ONE (12:15)
[2017-01-23 12:41] LABS: INR 3.32 ratio
[2017-01-23 12:56] LABS: BASOPHILS % (AUTO) 0.9 % (0-3); EOSINOPHILS % (AUTO) 0.2 % (0-5); MONOCYTES % (AUTO) 13.7 % (4-12); Mean Corpuscular Hemoglobin 33.7 pg (27.0-35.0); Mean Corpuscular Volume 109.6 fL (81-100); NEUTROPHILS % (AUTO) 71.6 % (40-74); Platelet Count 251 bil/L (150-400)
[2017-01-23 13:02] VITALS: BP 100/50; PULSE 90; RESP 16; O2SAT 100
[2017-01-23] MEDS ORDERED: oxyCODONE-Acetamin 10-325 mg Tablet PO ONE (13:15)
[2017-01-23 13:56] VITALS: BP 104/57; PULSE 90; RESP 16; O2SAT 99
== END 2017-01-23 13:57 | disposition home or self-care (01) ==
LOC: SED 10:54
DX: T82.838A Hemorrhage due to vascular prosthetic devices, implants and grafts, initial encounter (principal); I95.9 Hypotension, unspecified; Y84.8 Other medical procedures as the cause of abnormal reaction of the patient, or of later complication, without mention of misadventure at the time of the procedure; Y93.89 Activity, other specified; Y92.9 Unspecified place or not applicable; Y99.8 Other external cause status; I25.2 Old myocardial infarction; N18.6 End stage renal disease; I12.0 Hypertensive chronic kidney disease with stage 5 chronic kidney disease or end stage renal disease; E03.9 Hypothyroidism, unspecified; E78.5 Hyperlipidemia, unspecified; I50.9 Heart failure, unspecified; D63.1 Anemia in chronic kidney disease; Z99.2 Dependence on renal dialysis; Z99.81 Dependence on supplemental oxygen; Z79.01 Long term (current) use of anticoagulants; Z95.0 Presence of cardiac pacemaker; Z88.5 Allergy status to narcotic agent; Z88.8 Allergy status to other drugs, medicaments and biological substances
CPT/HCPCS: 85025; 85610; 96360; 99284; J7050

== ENCOUNTER 2017-03-01 19:37 | Emergency (ER) | payer MEDICARE, MEDICAID ==
[2017-03-01] MEDS ORDERED: Gelatin Sponge 12-7 MM ONE (19:46)
[2017-03-01 19:50] VITALS: BP 108/59; PULSE 85; RESP 18; O2SAT 99
--- NOTE | 2017-03-01 19:57 | ED.REPORT ---
HPI-General Illness Date of Service March 01, 2017 ED Provider: Chet Saravia DO Patient is a 72 year old female with a history of end stage renal disease with dialysis, CHF, PE and hypertension who presents to the ED via EMS due to a right arm fistula bleed. The patient reports that after dialysis she accidentally hit her arm at home and her arm started bleeding. Patient is currently taking Warfarin. Nursing Notes Stated Complaint: FISTULA BLEEDING Chief Complaint: General Complaint Nursing Notes Reviewed: Yes Allergies: Coded Allergies: morphine (Verified Allergy, Severe, depressed loc, TOLERATES HYDROCODONE, 07/06/16) hydromorphone (Unverified Allergy, Mild, 07/06/16) metoclopramide HCl (Verified Adverse Reaction, Severe, Nausea,Vomiting, ) Scheduled Amoxicillin/Clav K 500-125 mg (Amoxicillin/Clav K 500-125 mg) 1 Each Tablet 1 TAB PO Q24H Fluoxetine (Fluoxetine) 20 Mg Tablet 20 MG PO evening Folic Acid/Vitamin B Comp W-C (Renal Caps Softgel) 1 Mg Capsule 1 MG PO DAILY Ipratropium/Albuterol Sulfate (Iprat-Albut 0.5-3(2.5) mg/3 mL Inhalant Soln) 3 Ml Ampul.neb 3 ML IH Q6 Levothyroxine (Levothyroxine) 88 Mcg Tablet 88 MCG PO DAILY Lidocaine (Lidocaine) 700 Mg Adh..patch 1 PATCH TOP daily on hs, off AM Lisinopril (Lisinopril) 5 Mg Tablet 5 MG PO BID Metoprolol Succinate ER (Metoprolol Succinate ER) 25 Mg Tab.er.24h 12.5 MG PO BID Mirtazapine (Mirtazapine) 15 Mg Tablet 30 MG PO HS Multivitamin (Multi Vitamin Daily) 1 Each Tablet 1 EACH PO DAILY Omeprazole (Omeprazole) 20 Mg Capsule.dr 20 MG PO BIDAC Oseltamivir Phosphate (Tamiflu) 30 Mg Capsule 30 MG PO DIRECTED Prednisone (PredniSONE) 5 Mg Tab 5 MG PO DAILY Sevelamer Carbonate (Renvela) 800 Mg Tablet 800 MG PO TIDWM Trazodone (Trazodone) 50 Mg Tablet 25 MG PO HS Warfarin Sodium (Warfarin Sodium) 1 Mg Tablet 1 MG PO every other day Warfarin Sodium (Warfarin Sodium) 3 Mg Tablet 3 MG PO every other day Scheduled PRN Acetaminophen (Acetaminophen) 325 Mg Capsule 650 MG PO QID PRN PRN For Pain Albuterol HFA (Proair HFA) 8.5 Gm Hfa.aer.ad 2 PUFFS INHALATION Q4H PRN PRN For Shortness of Breath Albuterol Neb Soln (Albuterol Neb Soln) 2.5 Mg/3 Ml Vial.neb 2.5 MG INHALATION TID PRN PRN For Shortness of Breath Alprazolam (Alprazolam) 0.5 Mg Tablet 0.5 MG PO DAILY PRN PRN For Anxiety Benzonatate (Benzonatate) 100 Mg Capsule 100 MG PO TID PRN PRN For Cough Ondansetron (Ondansetron) 4 Mg Tablet 4 MG PO QID PRN PRN For Nausea Promethazine (Promethazine) 25 Mg Tablet 25 MG PO DAILY PRN PRN For Nausea Promethazine HCl (Phenergan) 25 Mg Supp.rect 25 MG RC prn PRN PRN For Nausea Sumatriptan (Imitrex) 100 Mg Tablet 100 MG PO DAILY PRN PRN FOR MIGRAINE HEADACHE may repeat in 2 hours, max dose 200 mg in 24 hrs oxyCODONE (oxyCODONE) 10 Mg Tablet 10 MG PO QID PRN PRN For Pain oxyCODONE (oxyCODONE) 5 Mg Tablet 10 MG PO TID PRN PRN For Moderate Pain General Time Seen by MD: 19:56 Chief Complaint Other (fistula bleed) Hx Obtained From: Patient Arrived By: Ambulance Sudden in Onset?: Yes Onset Occurred: Just prior to arrival Recent Healthcare: Recent doctor visit, Recent hospitalization Similar Sx Previous: No Past Medical History Past Medical History Notes: On prednisone 5 mg qd Past Medical History Hx STEMI ESRD on dialysis, prolonged QT Chronic hypoxemic respiratory failure on home oxygen Congestive heart failure Prolonged QT syndrome status post AICD Anemia due to renal failure History of pneumonia History of orthostatic hypotension History of pulmonary embolism and DVT diagnosed in 12/01/2012 no longer taking anticoagulation for unknown reasons. Chronic steroid dependency History of hepatitis B Hypothyroidism Depression Hyperlipidemia Hypertension History of miliary tuberculosis in 2010 treated Past Surgical History Pacemaker Kidney transplant 1999 Cholecystectomy Appendectomy Family History Noncontributory Smoking History Never Smoker Social History Alcohol Use: Denies alcohol use Drug Use: Denies drug use Other Social History: Good social support, , Local resident Ambulatory Status Independent Review of Systems fistula bleeding on right arm Physical Exam Vital Signs Vital Signs Date Time Temp Pulse Resp B/P Pulse Ox O2 Delivery O2 Flow Rate FiO2 03/01/17 21:18 92 18 105/52 99 Room Air 03/01/17 20:36 36.5 89 20 93/56 96 03/01/17 19:50 85 18 108/59 99 Initial VS: Reviewed General/Constitutional: Awake, Alert, No acute distress Head / Eyes: Atraumatic, Normocephalic, PERRL, EOMI Neck: Atraumatic, Supple, Full range of motion Respiratory / Chest: Atraumatic, Breath sounds NL, Breath sounds = bilat, No respiratory distress Cardiovascular: Heart rate NL, Regular rhythm, Heart sounds NL Abdomen: Atraumatic, Soft, Non-tender Back: Atraumatic, Full range of motion Upper Extremities bleeding from fistula on right arm Skin: Atraumatic, Color NL, No rash, Warm, Dry Neurologic: Oriented X3, Speech NL, No motor deficits, No sensory deficits Psychiatric: Affect NL, Mood NL Interpretation & Diagnostics Lab Results Interpretation Result Diagram: 03/01/17 1950 Test 03/01/17 19:50 White Blood Count 5.6th/mm3 (3.8-10.1) Red Blood Count 2.81mil/mm3 (3.90-5.20) Hemoglobin 9.8g/dL (12.0-15.6) Hematocrit 32.5% (35.0-46.0) Mean Corpuscular Volume 115.7fL (81-100) Mean Corpuscular Hemoglobin 34.9pg (27.0-35.0) Mean Corpuscular Hemoglobin Concent 30.2% (32.0-37.0) Red Cell Distribution Width 15.7% (12.3-15.4) Platelet Count 208bil/L (150-400) Neutrophils (%) (Auto) 64.5% (40-74) Lymphocytes (%) (Auto) 20.2% (14-46) Monocytes (%) (Auto) 13.0% (4-12) Eosinophils (%) (Auto) 1.4% (0-5) Basophils (%) (Auto) 0.5% (0-3) Prothrombin Time 25.2sec (8.1-12.5) Prothromb Time International Ratio 2.32ratio Procedures Laceration Management Laceration Management: careful to avoid fistula in right arm Time: 20:27 Procedure Performed by: ED physician Consent / Setup / Site Prep: Consent from patient, Time-out performed, Hand hygiene observed Wound Length: 1 cm Local Anesthesia: Lidocaine 1% Wound Preparation: Other (chloraprep) Repair Skin: Nylon Closure Layers: 1 Post-Procedure / Complications: No complications, Condition improved, Tolerated procedure well, Patient stable Re-Eval/Medical Decision Time of Eval: 20:27 Re-Evaluation/Progress Note: Discussed plan for procedure and discharge. The patient understands and agrees to the plan for discharge and the procedure. All questions were addressed. Time of Eval: 21:10 Patient Status: Condition improved Re-Evaluation/Progress Note: Patient no longer has active bleeding. Consultation : Consulted With: Nephrology Call Returned at: 20:20 Note: Consult with Dr. Lanza, who recommends putting in a stitch instead of using DermaBond. Counseled Regarding: Diagnosis, Need for follow-up, When/why to return to ED Discharge & Departure Primary Impression: Hemorrhage of arteriovenous fistula Encounter type: initial encounter Qualified Code: T82.838A - Hemorrhage due to vascular prosthetic devices, implants and grafts, initial encounter Disposition: Home Discharge Condition All VS Reviewed: Yes Condition: Stable Patient Instructions: Puncture Wound (ED) Additional Instructions: The stitch should hold and should be removed in [address] Lanza tomorrow to have your fistula checked to make sure it is working properly. If it starts bleeding again, hold pressure to it as instructed. Return to the emergency department if you see signs of infection including redness, swelling or discharge from the area. Referrals: Santino Pratt MD (PCP) Jannie Attestation Portions of this note were transcribed by Katt Young. I, Dr. Saravia personally performed the history, physical exam and medical decision-making; I reviewed and confirmed the accuracy of the information in the transcribed note. Signed by: Jannie Bernal, 03/01/17 and 2103 copies to: Santino Pratt MD, Todd P DO March 01, 2017 19:57 Nicki Young March 01, 2017 20:06
[2017-03-01 20:05] LABS: BASOPHILS % (AUTO) 0.5 % (0-3); EOSINOPHILS % (AUTO) 1.4 % (0-5); Mean Corpuscular Hemoglobin 34.9 pg (27.0-35.0); Mean Corpuscular Volume 115.7 fL (81-100); NEUTROPHILS % (AUTO) 64.5 % (40-74); Platelet Count 208 bil/L (150-400)
[2017-03-01] MEDS ORDERED: Lidocaine 2%-Epi 1:100,000 20 mL Inj ONE (20:08)
[2017-03-01] MEDS ORDERED: Lidocaine 1%-Epi 1:100,000 50 mL Inj SUBQ ONE (20:10)
[2017-03-01] MEDS ORDERED: Tissue Adhesive Liq (CS Supplied) TOPICAL ONE (20:10)
[2017-03-01] MEDS ORDERED: Lidocaine 1%-Epi 1:100,000 20 mL Inj SUBQ ONE (20:15)
[2017-03-01 20:24] LABS: INR 2.32 ratio
[2017-03-01 20:36] VITALS: BP 93/56; PULSE 89; RESP 20; O2SAT 96
[2017-03-01 21:18] VITALS: BP 105/52; PULSE 92; RESP 18; O2SAT 99
== END 2017-03-01 21:19 | disposition home or self-care (01) ==
LOC: SED 19:37 → EDBD 19:37 → SED 21:19
DX: T82.838A Hemorrhage due to vascular prosthetic devices, implants and grafts, initial encounter (principal); W22.8XXA Striking against or struck by other objects, initial encounter; Y93.89 Activity, other specified; Y92.009 Unspecified place in unspecified non-institutional (private) residence as the place of occurrence of the external cause; Y99.8 Other external cause status; I13.2 Hypertensive heart and chronic kidney disease with heart failure and with stage 5 chronic kidney disease, or end stage renal disease; I50.9 Heart failure, unspecified; N18.6 End stage renal disease; I25.2 Old myocardial infarction; F32.9 Major depressive disorder, single episode, unspecified; E03.9 Hypothyroidism, unspecified; E78.5 Hyperlipidemia, unspecified; Z95.0 Presence of cardiac pacemaker; Z94.0 Kidney transplant status; Z99.2 Dependence on renal dialysis; Z79.01 Long term (current) use of anticoagulants; Z88.5 Allergy status to narcotic agent; Z88.8 Allergy status to other drugs, medicaments and biological substances